=== PATIENT | male | born 1975 | race Caucasian/White ===

== ENCOUNTER → 2020-07-24 13:03 | Outpatient (BNVA) | payer OTHER, SELFPAY | PROVIDERS: Visit Provider Nurse Practitioner Psychiatric/Mental Health | DX: F11.20 Opioid dependence, uncomplicated (principal) | CPT/HCPCS: 80305; 99211 ==

== ENCOUNTER → 2020-07-31 13:05 | Outpatient (BNVA) | payer OTHER, SELFPAY | PROVIDERS: Visit Provider Internal Medicine | DX: Z51.81 Encounter for therapeutic drug level monitoring (principal); Z79.899 Other long term (current) drug therapy; Z79.891 Long term (current) use of opiate analgesic | CPT/HCPCS: 80305; 99211 ==

== ENCOUNTER → 2020-08-06 10:21 | Outpatient (BNVA) | payer OTHER, SELFPAY | PROVIDERS: Visit Provider Internal Medicine | DX: F11.99 Opioid use, unspecified with unspecified opioid-induced disorder (principal) | CPT/HCPCS: 80305; 99211 ==

== ENCOUNTER → 2020-09-02 13:08 | Outpatient (BNVA) | payer OTHER, SELFPAY | PROVIDERS: Visit Provider Internal Medicine | DX: F11.20 Opioid dependence, uncomplicated (principal); F17.200 Nicotine dependence, unspecified, uncomplicated; Z59.0 Homelessness | CPT/HCPCS: 80305; 99212 ==

== ENCOUNTER → 2020-09-10 14:36 | Outpatient (BNVA) | payer OTHER, SELFPAY | PROVIDERS: Visit Provider Internal Medicine | DX: Z76.89 Persons encountering health services in other specified circumstances (principal) ==

== ENCOUNTER → 2020-09-22 10:18 | Outpatient (BNVA) | payer OTHER, SELFPAY | PROVIDERS: Visit Provider Internal Medicine | DX: F11.99 Opioid use, unspecified with unspecified opioid-induced disorder (principal) | CPT/HCPCS: 80305; 99211 ==

== ENCOUNTER → 2020-09-30 13:28 | Outpatient (BNVA) | payer OTHER, SELFPAY | PROVIDERS: Visit Provider Internal Medicine | DX: Z76.89 Persons encountering health services in other specified circumstances (principal) ==

== ENCOUNTER → 2020-10-14 11:33 | Outpatient (BNVA) | payer OTHER, SELFPAY | PROVIDERS: Visit Provider Internal Medicine | DX: Z76.89 Persons encountering health services in other specified circumstances (principal) ==

== ENCOUNTER → 2020-10-28 10:01 | Outpatient (BNVA) | payer OTHER, SELFPAY | PROVIDERS: Visit Provider Internal Medicine | DX: Z76.89 Persons encountering health services in other specified circumstances (principal) ==

== ENCOUNTER → 2020-11-17 10:26 | Outpatient (BNVA) | payer OTHER, SELFPAY | PROVIDERS: Visit Provider Internal Medicine | DX: F11.99 Opioid use, unspecified with unspecified opioid-induced disorder (principal) | CPT/HCPCS: 80305 ==

== ENCOUNTER → 2020-11-24 10:32 | Outpatient (BNVA) | payer OTHER, SELFPAY | PROVIDERS: Visit Provider Internal Medicine | DX: F11.99 Opioid use, unspecified with unspecified opioid-induced disorder (principal); F14.10 Cocaine abuse, uncomplicated; F17.200 Nicotine dependence, unspecified, uncomplicated | CPT/HCPCS: 80305; 99212 ==

== ENCOUNTER → 2020-12-11 11:05 | Outpatient (BNVA) | payer OTHER, SELFPAY | PROVIDERS: Visit Provider Internal Medicine | DX: Z51.81 Encounter for therapeutic drug level monitoring (principal) | CPT/HCPCS: 80305; 99211 ==

== ENCOUNTER → 2020-12-30 12:57 | Outpatient (BNVA) | payer OTHER, SELFPAY | PROVIDERS: Visit Provider Internal Medicine | DX: Z51.81 Encounter for therapeutic drug level monitoring (principal) | CPT/HCPCS: 80305; 99211 ==

== ENCOUNTER → 2021-01-15 14:46 | Outpatient (BNVA) | payer OTHER, SELFPAY | PROVIDERS: Visit Provider Internal Medicine | DX: Z51.81 Encounter for therapeutic drug level monitoring (principal) | CPT/HCPCS: 80305; 99211 ==

== ENCOUNTER → 2021-02-04 13:00 | Outpatient (BNVA) | payer OTHER, SELFPAY | PROVIDERS: Visit Provider Internal Medicine | DX: Z51.81 Encounter for therapeutic drug level monitoring (principal) | CPT/HCPCS: 80305; 99212 ==

== ENCOUNTER → 2021-03-03 13:48 | Outpatient (BNVA) | payer OTHER, SELFPAY | PROVIDERS: Visit Provider Internal Medicine | DX: Z51.81 Encounter for therapeutic drug level monitoring (principal); Z79.899 Other long term (current) drug therapy | CPT/HCPCS: 99211 ==

== ENCOUNTER → 2021-06-04 11:29 | Outpatient (BNVA) | payer OTHER, SELFPAY | PROVIDERS: Visit Provider Nurse Practitioner Psychiatric/Mental Health | DX: F11.20 Opioid dependence, uncomplicated (principal); F14.10 Cocaine abuse, uncomplicated | CPT/HCPCS: 80305; 99212 ==

== ENCOUNTER → 2021-06-11 09:55 | Outpatient (BNVA) | payer OTHER, SELFPAY | PROVIDERS: Visit Provider Nurse Practitioner Psychiatric/Mental Health | DX: Z51.81 Encounter for therapeutic drug level monitoring (principal); F11.90 Opioid use, unspecified, uncomplicated; F14.10 Cocaine abuse, uncomplicated | CPT/HCPCS: 80305; 99212 ==

== ENCOUNTER → 2021-06-23 15:40 | Outpatient (BNVA) | payer OTHER, SELFPAY | PROVIDERS: PCP Internal Medicine; Visit Provider Internal Medicine | DX: Z51.81 Encounter for therapeutic drug level monitoring (principal); F11.90 Opioid use, unspecified, uncomplicated; F12.90 Cannabis use, unspecified, uncomplicated | CPT/HCPCS: 80305; 99212 ==

== ENCOUNTER → 2021-07-06 16:40 | Outpatient (BNVA) | payer OTHER, SELFPAY | PROVIDERS: Visit Provider Internal Medicine | DX: F11.90 Opioid use, unspecified, uncomplicated (principal) | CPT/HCPCS: 80305; 99212 ==

== ENCOUNTER 2021-07-20 16:23 | Outpatient (REF) | payer OTHER, SELFPAY ==
[2021-07-20 18:38] LABS: Fentanyl, urine POSITIVE (Not Detect)
== END 2021-07-20 16:24 | disposition home or self-care (01) ==
LOC: HO.LNP 16:23
PROVIDERS: Visit Provider Internal Medicine
DX: F11.20 Opioid dependence, uncomplicated (principal); Z79.899 Other long term (current) drug therapy
CPT/HCPCS: 80305; 80307; 99212

== ENCOUNTER → 2021-08-05 11:44 | Outpatient (BNVA) | payer OTHER, SELFPAY | PROVIDERS: Visit Provider Internal Medicine | DX: F11.20 Opioid dependence, uncomplicated (principal); Z51.81 Encounter for therapeutic drug level monitoring; Z79.899 Other long term (current) drug therapy | CPT/HCPCS: 80305; 99212 ==

== ENCOUNTER → 2021-08-19 10:41 | Outpatient (BNVA) | payer OTHER, SELFPAY | PROVIDERS: Visit Provider Internal Medicine | DX: F11.90 Opioid use, unspecified, uncomplicated (principal); Z79.899 Other long term (current) drug therapy | CPT/HCPCS: 80305; 99212 ==

== ENCOUNTER 2021-09-04 13:16 | Outpatient (REF) | payer OTHER, SELFPAY ==
[2021-09-04 17:53] LABS: Fentanyl, urine Not Detected (Not Detect)
== END 2021-09-04 13:17 | disposition home or self-care (01) ==
LOC: HO.LNP 13:16
PROVIDERS: Visit Provider Internal Medicine
DX: F11.99 Opioid use, unspecified with unspecified opioid-induced disorder (principal); Z79.899 Other long term (current) drug therapy
CPT/HCPCS: 80305; 80307; 99212

== ENCOUNTER 2021-09-23 13:18 | Outpatient (REF) | payer OTHER, SELFPAY ==
[2021-09-23 17:57] LABS: Fentanyl, urine Not Detected (Not Detect)
== END 2021-09-23 13:19 | disposition home or self-care (01) ==
LOC: HO.LNP 13:18
PROVIDERS: Visit Provider Internal Medicine
DX: F11.20 Opioid dependence, uncomplicated (principal); Z51.81 Encounter for therapeutic drug level monitoring; Z79.899 Other long term (current) drug therapy
CPT/HCPCS: 80305; 80307; 99212

== ENCOUNTER → 2021-10-07 14:22 | Outpatient (BNVA) | payer OTHER, SELFPAY | PROVIDERS: Visit Provider Internal Medicine | DX: Z51.81 Encounter for therapeutic drug level monitoring (principal); F11.20 Opioid dependence, uncomplicated | CPT/HCPCS: 80305; 99211 ==

== ENCOUNTER → 2021-10-21 13:33 | Outpatient (BNVA) | payer OTHER, SELFPAY | DX: Z51.81 Encounter for therapeutic drug level monitoring (principal); F11.20 Opioid dependence, uncomplicated | CPT/HCPCS: 80305; 99211 ==

== ENCOUNTER → 2021-11-04 09:40 | Outpatient (BNVA) | payer OTHER, SELFPAY | PROVIDERS: Visit Provider Internal Medicine | DX: Z51.81 Encounter for therapeutic drug level monitoring (principal); F11.20 Opioid dependence, uncomplicated | CPT/HCPCS: 80305; 99211 ==

== ENCOUNTER → 2021-11-17 10:48 | Outpatient (BNVA) | payer OTHER, SELFPAY | PROVIDERS: Visit Provider Internal Medicine | DX: Z51.81 Encounter for therapeutic drug level monitoring (principal); F11.20 Opioid dependence, uncomplicated | CPT/HCPCS: 80305; 99211 ==

== ENCOUNTER → 2021-12-01 11:16 | Outpatient (BNVA) | payer OTHER, SELFPAY | PROVIDERS: Visit Provider Internal Medicine | DX: Z51.81 Encounter for therapeutic drug level monitoring (principal); F11.20 Opioid dependence, uncomplicated | CPT/HCPCS: 80305; 99211 ==

== ENCOUNTER → 2021-12-14 10:58 | Outpatient (BNVA) | payer OTHER, SELFPAY | PROVIDERS: Visit Provider Internal Medicine | DX: Z51.81 Encounter for therapeutic drug level monitoring (principal); F11.20 Opioid dependence, uncomplicated; F12.90 Cannabis use, unspecified, uncomplicated; F14.90 Cocaine use, unspecified, uncomplicated | CPT/HCPCS: 80305 ==

== ENCOUNTER → 2022-01-12 14:38 | Outpatient (BNVA) | payer OTHER, SELFPAY | PROVIDERS: Visit Provider Internal Medicine | DX: Z51.81 Encounter for therapeutic drug level monitoring (principal); F11.20 Opioid dependence, uncomplicated | CPT/HCPCS: 80305; 99211 ==

== ENCOUNTER → 2022-02-09 14:00 | Outpatient (BNVA) | payer OTHER, SELFPAY | PROVIDERS: Visit Provider Internal Medicine | DX: Z51.81 Encounter for therapeutic drug level monitoring (principal); F11.20 Opioid dependence, uncomplicated | CPT/HCPCS: 80305; 99212 ==

== ENCOUNTER → 2022-03-09 12:57 | Outpatient (BNVA) | payer OTHER, SELFPAY | PROVIDERS: Visit Provider Internal Medicine | DX: F11.20 Opioid dependence, uncomplicated (principal) | CPT/HCPCS: 80305; 99212 ==

== ENCOUNTER → 2022-04-09 13:15 | Outpatient (BNVA) | payer OTHER, SELFPAY | PROVIDERS: Visit Provider Internal Medicine | DX: F11.20 Opioid dependence, uncomplicated (principal) | CPT/HCPCS: 80305; 99212 ==

== ENCOUNTER → 2022-05-07 13:14 | Outpatient (BNVA) | payer OTHER, SELFPAY | PROVIDERS: Visit Provider Internal Medicine | DX: Z51.81 Encounter for therapeutic drug level monitoring (principal); F11.20 Opioid dependence, uncomplicated | CPT/HCPCS: 80305; 99212 ==

== ENCOUNTER → 2022-06-04 13:06 | Outpatient (BNVA) | payer OTHER, SELFPAY | PROVIDERS: Visit Provider Internal Medicine | DX: F11.99 Opioid use, unspecified with unspecified opioid-induced disorder (principal); F14.90 Cocaine use, unspecified, uncomplicated; Z51.81 Encounter for therapeutic drug level monitoring | CPT/HCPCS: 99212 ==

== ENCOUNTER → 2022-07-02 12:59 | Outpatient (BNVA) | payer OTHER, SELFPAY | PROVIDERS: Visit Provider Internal Medicine | DX: Z51.81 Encounter for therapeutic drug level monitoring (principal); F11.20 Opioid dependence, uncomplicated; F12.90 Cannabis use, unspecified, uncomplicated; F14.90 Cocaine use, unspecified, uncomplicated | CPT/HCPCS: 99212 ==

== ENCOUNTER → 2022-07-30 14:24 | Outpatient (BNVA) | payer OTHER, SELFPAY | PROVIDERS: Visit Provider Internal Medicine | DX: F11.20 Opioid dependence, uncomplicated (principal); Z51.81 Encounter for therapeutic drug level monitoring; Z79.899 Other long term (current) drug therapy | CPT/HCPCS: 99212 ==

== ENCOUNTER 2022-07-31 06:31 | Emergency (ER) | payer OTHER, SELFPAY ==
[2022-07-31 06:35] VITALS: BP 140/70; PULSE 110; O2SAT 100
[2022-07-31 06:38] VITALS: BP 159/94; PULSE 106; RESP 18; TEMP 36.6; O2SAT 100; BMI 19.0
--- NOTE | 2022-07-31 06:46 | PC.NURSE ---
Pt tearful at time of triage. States he made a horrible mistake by using heroin today. Pt is on suboxone but his clinic was closed today and he could not receive his prescription. Therefore he used heroin instead. Denies any regular use.
[2022-07-31 06:52] VITALS: BP 159/94; PULSE 94; RESP 15; TEMP 36.7; O2SAT 100
--- NOTE | 2022-07-31 07:12 | ED_ITS ---
HPI - Overdose General Chief Complaint: Overdose Stated Complaint: overdose Time Seen by Provider: 07/31/22 06:50 Source: patient and EMS Mode of arrival: EMS Limitations: no limitations History of Present Illness HPI Narrative: 47-year-old male came in by ambulance for after non intentional heroin overdose. patient was seen by his significant other passed out after using half a bag of heroin girlfriend called EMS on arrival patient was given 4 mg of nasal Narcan, patient has not use heroin for 10 years and he is on Suboxone 8 mg last 1 was a day ago. Declined SI or HI. Patient now regret Ng using heroin. Related Data Home Medications Medication Instructions Recorded Confirmed clonazepam 0.5 mg tablet 0.5 mg PO BEDTIME 06/04/21 Previous Rx's Medication Instructions Recorded naloxone 4 mg/actuation nasal 4 mg intranasal Q2M PRN opioid 06/04/21 spray (Narcan) overdose #2 ea nicotine 21 mg/24 hr daily 1 patch transdermal DAILY 30 days 08/19/21 transdermal patch (Nicoderm CQ) #30 ea buprenorphine 8 mg-naloxone 2 mg 2 film sublingual DAILY 30 days 07/02/22 sublingual film (Suboxone) #60 ea Allergies Allergy/AdvReac Type Severity Reaction Status Date / Time No Known Allergies Allergy Verified 07/30/22 14:24 [No Known Allergies*] Review of Systems Review of Systems: all other systems are reviewed and are negative Constitutional: Reports as per HPI and Reports no additional constitutional complaints Eyes: Reports as per HPI and Reports no additional eye complaints Reports system reviewed and no additional complaints, except as documented Cardiovascular: Reports as per HPI and Reports no additional cardiovascular complaints Respiratory: Reports as per HPI and Reports no additional respiratory complaints Gastrointestinal: Reports as per HPI and Reports no additional gastrointestinal complaints Genitourinary: Reports no additional female genitourinary complaints Musculoskeletal: Reports no additional musculoskeletal complaints Skin/Breast: Reports system reviewed and no additional complaints, except as docu Psychiatric: Reports no additional psychiatric complaints Endocrine: Reports no additional endocrine complaints Hematologic/Lymphatic: Reports no additional hematologic/lymphatic complaints Allergic/Immunologic: Reports no additional allergic/immunologic complaints Reports system reviewed and no additional complaints, except as documented and Reports Abnormal speech present PMFSH Past Medical History Medical History Cocaine use disorder Opioid use disorder Tobacco use disorder Social History Social History Household Members: Significant Other Household Members Other:: Fiance Alcohol intake: current Alcohol intake frequency: does not drink Patient Tobacco Use Status: Current everyday Tobacco user Tobacco use type: Cigarette Cigarette Packs Per Day: 0.5 Years Smoked: 20 Smoked in Last 30 Days: Yes Use of substances other than those prescribed or required for medical reasons: Yes Substance Use Type: Heroin and Other Substance Use Frequency: Recent Binge Last Used Substance: Just Prior to Admission Any prior treatment program specific to substance use: Yes Physical Exam Vital Signs: Vital Signs: Last Vital Signs Temp 98.6 F 07/31/22 08:08 Pulse 88 07/31/22 08:08 Resp 11 L 07/31/22 08:08 BP 124/67 07/31/22 08:08 Pulse Ox 98 07/31/22 08:08 O2 Del Method 07/31/22 08:08 BMI result Body Mass Index 19.0 vital signs have been reviewed as appeared to be correct. Blood pressure normal. Heart rate normal. Respiration rate normal. Temperature normal. Oxygen saturation normal. Appearance: Alert. Oriented X3. No acute distress. Head: Normal external exam. Normocephalic. Atraumatic. No Yepez signs noted. No raccoon eyes noted Eyes: PERRLA. EOMI. Conjunctiva and sclera normal. Eyelids normal. ENT: TM's Normal. Pharynx normal. Uvula midline. Moist mucous membranes. No trismus noted. No drooling noted. No muffled voice noted. Neck: Normal inspection. Neck supple. FROM. No adenopathy. Thyroid Normal. No meningeal signs. No neck mass noted. CVS: Normal heart rate and rhythm. Heart sound normal. No murmurs noted. Pulses normal throughout. Respiratory: No respiratory distress. Painless inspiration. Breath sounds normal. No wheezes/rales/rhonchi noted. Chest nontender. No accessory muscle usage noted or decreased air movement noted. Abdomen: Soft and nontender. Bowel sounds normal in all 4 quadrants. No distention noted. No organomegaly noted. No visible injury noted. Back: No CVA tenderness. Full range of motion noted. Skin: Skin warm and dry. Normal skin color. Normal skin turgor. No rashes/lesions/lacerations noted. Extremities: No lower extremity edema. Extremities exhibit normal range of motion. Extremities nontender. Neuro: Oriented X 3. Cranial nerve exam: II-XII are grossly intact No motor deficit. No sensory deficit. Reflexes normal. Patient Orientation: Person, Place, Time and Situation, okay hygiene and gr ooming. Fair eye contact, attentive, no tics or tremors. Level of Consciousness: Awake, Appropriate and Alert Patient Behavior: Appropriate, Guarded, Cooperative and Anxious Mood Description: Constricted, Blunted and Apprehensive Affect Description: Constricted, Blunted and Apprehensive Patient Cognition Impaired: No Ability to Follow Directions: Excellent Speech Pattern: Clear, Appropriate and Spontaneous Speech, nonpressured, spontaneous with regular rate and rhythm, normal volume and prosody. No dysarthria. Memory Description: Intact, Immediate Intact and Short Term Intact Hallucinations: None Delusions: Not Present Thought Process: Intact Thought Content: positive for Intact, positive for Logical, denies Suicidal Ideation and denies Homicidal Ideation. Depressive Symptoms: Not present. Judgement and Insight: Limited but adequate. Course Course Course Narrative: 47-year-old male unintentional heroin overdose, patient now is awake, alert, oriented x3. No SI, no HI, patient regret using heroin after not using it for 10 years, patient will follow-up with the Suboxone Clinic. Patient was offered Suboxone but he is afraid of reaction with heroin he used yesterday and patient declined Suboxone but he will follow-up with the Suboxone Clinic. No sign of withdrawal at this point. Discharge Plan Discharge Clinical Impression: Drug overdose Patient Disposition: Home, Self-Care Instructions: Adult Overdose (ED) Prescriptions: No Action clonazepam 0.5 mg tablet 0.5 mg PO BEDTIME Rx Instructions: administer 30 minutes before bedtime Narcan 4 mg/actuation spray,non-aerosol 4 mg intranasal Q2M PRN (Reason: opioid overdose) Qty: 2 0RF Rx Instructions: spray 1 dose into ONE nostril; alternate nostrils w each dose until help arrives nicotine [Nicoderm CQ] 21 mg/24 hr patch 24 hour 1 patch transdermal DAILY 30 Days Qty: 30 3RF buprenorphine-naloxone [Suboxone] 8-2 mg film 2 film sublingual DAILY 30 Days Qty: 60 0RF Rx Instructions: place 1 strip/tab under (each) side of tongue
[2022-07-31 08:08] VITALS: BP 124/67; PULSE 88; RESP 11; TEMP 37; O2SAT 98
--- OUTSIDE RECORDS SUMMARY | 2022-07-31 08:49 | XMS_ITS | Continuity of Care Document ---
:1975 Author Organization [facility] Address [address] [place] [address]- Care Team Providers Name Role Phone Mio Taylor MD Primary Care Physician Encounter [facility] Date(s): 09/29/19 - 09/29/[address] [address]- [facility] Discharge Disposition: A-D/C AMA Attending Physician: Chuck Vera MD Admitting Physician: Chuck Vera MD Referring Physician: Not on Staff, Referring MD Allergies, Adverse Reactions, Alerts Substance Reaction Severity Status NKA Active Medications nabumetone 500 mg oral tablet See Instructions, 1-2 tablet By Mouth twice daily as needed for pain. with food, # 30 tablet, 0 Refills, Maintenance, 1-2 tablet By Mouth twice daily as needed for pain. with food Start Date: 10/01/13 Status: Ordered Vital Signs Most recent to oldest [Reference Range]: 1 Height 170 cm (09/29/19 6:32 PM) Weight 60 kg (09/29/19 6:32 PM) Oxygen Saturation [94-100 %] 98 % (09/29/19 6:32 PM) Pulse Rate [55-90 bpm] 115 bpm *H* (09/29/19 6:32 PM) Blood Pressure [90-138/55-84 mm Hg] 126/97 mm Hg (09/29/19 6:32 PM) Respiratory Rate [16-30 br/min] 20 br/min (09/29/19 6:32 PM) Temperature [96.8-100.4 DegF] 97.4 DegF (09/29/19 6:32 PM) Mode of Delivery (Oxygen) Room air (09/29/19 6:32 PM) Temperature Route Oral (09/29/19 6:32 PM) Dry Weight 60 kg (09/29/19 6:32 PM)
--- NOTE | 2022-07-31 09:03 | MHC.RECOVSUP ---
SUDE Patient is a 47 year old Dutch speaking male who presented to [facility] ED on 07/31 after an accidental overdose. Patient saw his Suboxone provider on 07/30 however reports his prescription was not sent to the pharmacy and he did not realize until after the clinic closed. Patient reports he last took 8mg of Suboxone on at 1500 and that he began to feel sick this morning so he decided to use heroin. Patient reports he used 1/3 of a bag and was found unresponsive. Patient expressed remorse and reports he is terrified of using again. Patient reports he had not used in 10 years prior to this however a review of the medical record indicates this law writer met with patient in 2019 after an accidental overdose. A review of [facility] notes indicates patient has been supported by a assistant baseball coach and therapist in the past. Discussed with Marily SANTOS who recommended providing patient with 1 or 2mg of Suboxone in the ED and for patient to receive a prescription to get back to his full dose tomorrow. Discussed plan with patient. Patient reports that he is terrified of precipitated withdrawal. He has never experienced precipitated withdrawal but has heard about it. This law writer reassured patient that he still has buprenorphine in his system and that a low dose of Suboxone is unlikely to result in precipitated withdrawal. Patient continues to decline medication and prescription. Patient reports he would rather wait until Tuesday and restart Suboxone when he is sure there is no opiates in him. Encouraged patient to return to the ED if the withdrawal becomes unmanageable. Patient acknowledged. Discussed case with ED physician.
== END 2022-07-31 09:51 | disposition home or self-care (01) ==
PROVIDERS: Emergency Provider Emergency Medicine; PCP Internal Medicine
DX: T40.1X1A Poisoning by heroin, accidental (unintentional), initial encounter (principal); F11.20 Opioid dependence, uncomplicated; F14.10 Cocaine abuse, uncomplicated; R40.20 Unspecified coma; Y92.019 Unspecified place in single-family (private) house as the place of occurrence of the external cause; F17.210 Nicotine dependence, cigarettes, uncomplicated
CPT/HCPCS: 99284

== ENCOUNTER → 2022-08-25 11:40 | Outpatient (BNVA) | payer OTHER, SELFPAY | PROVIDERS: Visit Provider Internal Medicine | DX: F14.20 Cocaine dependence, uncomplicated (principal); F11.20 Opioid dependence, uncomplicated; F17.210 Nicotine dependence, cigarettes, uncomplicated; Z51.81 Encounter for therapeutic drug level monitoring | CPT/HCPCS: 99212 ==

== ENCOUNTER 2022-10-05 00:55 | Emergency (ER) | payer OTHER, SELFPAY ==
[2022-10-05 00:55] VITALS: BMI 24.3
[2022-10-05 01:27] VITALS: BP 131/71; PULSE 93; RESP 18; TEMP 36.7; O2SAT 96
[2022-10-05 02:19] VITALS: BP 138/82; PULSE 70; RESP 18; TEMP 36.6; O2SAT 94
--- NOTE | 2022-10-05 02:22 | ED_ITS ---
HPI - Overdose General Chief Complaint: Overdose Stated Complaint: od Time Seen by Provider: 10/05/22 01:58 Source: patient and EMS Mode of arrival: EMS History of Present Illness HPI Narrative: 47-year-old male presents via EMS after his girlfriend called for suspected overdose because she can wake him up. Police arrived on scene return patient over and found that patient was awake and alert and spontaneously breathing. They did not administer Narcan at that time. Patient states that he is feeling fine and is requesting discharge. Patient is currently declining any further evaluation including for blood sugar. Related Data Home Medications Medication Instructions Recorded Confirmed clonazepam 0.5 mg tablet 0.5 mg PO BEDTIME 06/04/21 Previous Rx's Medication Instructions Recorded naloxone 4 mg/actuation nasal 4 mg intranasal Q2M PRN opioid 06/04/21 spray (Narcan) overdose #2 ea nicotine 21 mg/24 hr daily 1 patch transdermal DAILY 30 days 08/19/21 transdermal patch (Nicoderm CQ) #30 ea buprenorphine 8 mg-naloxone 2 mg 2 film sublingual DAILY 30 days 09/03/22 sublingual film (Suboxone) #60 ea Allergies Allergy/AdvReac Type Severity Reaction Status Date / Time No Known Allergies Allergy Verified 08/25/22 11:53 [No Known Allergies*] Review of Systems Review of Systems: Pertinent positives and negatives as stated in HPI 10 point review of systems is otherwise negative. [facility] Past Medical History Source: nursing notes reviewed Medical History Cocaine use disorder Opioid use disorder Tobacco use disorder Social History Social History Household Members: Significant Other Household Members Other:: Fiance Alcohol intake: current Alcohol intake frequency: does not drink Patient Tobacco Use Status: Current everyday Tobacco user Tobacco use type: Cigarette Cigarette Packs Per Day: 0.5 Years Smoked: 20 Substance Use Type: Heroin and Other Advance Directives: No Physical Exam Vital Signs: Vital Signs: Last Vital Signs Temp 98 F 10/05/22 02:19 Pulse 70 10/05/22 02:19 Resp 18 10/05/22 02:19 BP 138/82 10/05/22 02:19 Pulse Ox 94 10/05/22 02:19 O2 Del Method 10/05/22 02:19 BMI result Body Mass Index 24.3 VITAL SIGNS: Reviewed. GENERAL: Well nourished, in no acute distress. HEAD: Normocephalic/atraumatic EYES: PERRLA, EOMI EARS: Ext canals without abnormality OROPHARYNX: no oral lesions noted, posterior pharynx clear LUNGS: Normal breath sounds. No adventitious sounds or accessory muscle use. SpO2<94> CARDIOVASCULAR: Regular rate and rhythm without noted murmurs ABDOMEN: Soft, non-tender, non-distended with bowel sounds. MUSCULOSKELETAL: No tenderness, deformities, or effusions noted on gross inspection. EXTREMITIES: No cyanosis, clubbing or edema. SKIN: Inspection of the skin reveals no rashes NEUROLOGIC: Sleeping, difficult to arouse and oriented x 3. Strength and sensation to light touch were grossly intact x 4. Course Course Course Narrative: 47-year-old male with history and clinical presentation consistent with accidental overdose and although he was awake on arrival, he was exceedingly difficult to arouse and was noted to have pinpoint pupils, he will receive 4 mg Narcan intranasally and be re-evaluated. Patient awake prior to administration of Narcan and adamantly refusing. He is otherwise hemodynamically stable is declining any detox resources. He denies any suicidal ideation is otherwise discharged home in stable condition to the care of his . Patient discharged with home Narcan. Medications Administered Discontinued Medications Generic Name Dose Route Start Last Admin Trade Name Freq PRN Reason Stop Dose Admin Naloxone HCl 4 mg 10/05/22 03:10 10/05/22 03:32 Naloxone Hcl Nasal 4 Mg [place] NOSTRILALT 10/05/22 03:11 Not Given ONCE ONE Discharge Plan Discharge Clinical Impression: Drug overdose, Polysubstance use disorder Patient Disposition: Home, Self-Care Instructions: Polysubstance Abuse (ED), Adult Overdose (ED) Additional Instructions: Return to the ER for any worsening symptoms. Prescriptions: No Action buprenorphine-naloxone [Suboxone] 8-2 mg film 2 film sublingual DAILY 30 Days Qty: 60 0RF Rx Instructions: place 1 strip/tab under (each) side of tongue clonazepam 0.5 mg tablet 0.5 mg PO BEDTIME Rx Instructions: administer 30 minutes before bedtime Narcan 4 mg/actuation spray,non-aerosol 4 mg intranasal Q2M PRN (Reason: opioid overdose) Qty: 2 0RF Rx Instructions: spray 1 dose into ONE nostril; alternate nostrils w each dose until help arrives nicotine [Nicoderm CQ] 21 mg/24 hr patch 24 hour 1 patch transdermal DAILY 30 Days Qty: 30 3RF
--- NOTE | 2022-10-05 03:37 | PC.NURSE ---
patient is alert and oriented x4. he is calling his relative on the phone to come pick him up.
== END 2022-10-05 04:20 | disposition home or self-care (01) ==
PROVIDERS: Emergency Provider Student in an Organized Health Care Education/Training Program
DX: R40.0 Somnolence (principal); T50.901A Poisoning by unspecified drugs, medicaments and biological substances, accidental (unintentional), initial encounter; F19.99 Other psychoactive substance use, unspecified with unspecified psychoactive substance-induced disorder; F11.99 Opioid use, unspecified with unspecified opioid-induced disorder; F14.10 Cocaine abuse, uncomplicated; Y92.013 Bedroom of single-family (private) house as the place of occurrence of the external cause; F17.200 Nicotine dependence, unspecified, uncomplicated; Z79.899 Other long term (current) drug therapy
CPT/HCPCS: 99283

== ENCOUNTER → 2022-10-08 13:38 | Outpatient (BNVA) | payer OTHER, SELFPAY | PROVIDERS: Visit Provider Internal Medicine | DX: Z51.81 Encounter for therapeutic drug level monitoring (principal); F11.20 Opioid dependence, uncomplicated | CPT/HCPCS: 99212 ==

== ENCOUNTER → 2022-10-14 10:05 | Outpatient (BNVA) | payer OTHER, SELFPAY | PROVIDERS: PCP Internal Medicine; Visit Provider Nurse Practitioner Psychiatric/Mental Health | DX: Z51.81 Encounter for therapeutic drug level monitoring (principal); F11.20 Opioid dependence, uncomplicated | CPT/HCPCS: 80305; 99212 ==

== ENCOUNTER → 2022-10-21 09:12 | Outpatient (BNVA) | payer OTHER, SELFPAY | PROVIDERS: PCP Internal Medicine; Visit Provider Nurse Practitioner Psychiatric/Mental Health | DX: F11.20 Opioid dependence, uncomplicated (principal) | CPT/HCPCS: 99212 ==

== ENCOUNTER → 2022-10-28 09:11 | Outpatient (BNVA) | payer OTHER, SELFPAY | PROVIDERS: PCP Internal Medicine; Visit Provider Nurse Practitioner Psychiatric/Mental Health | DX: Z51.81 Encounter for therapeutic drug level monitoring (principal); F11.20 Opioid dependence, uncomplicated | CPT/HCPCS: 80305; 99212 ==

== ENCOUNTER → 2022-11-04 09:24 | Outpatient (BNVA) | payer OTHER, SELFPAY | PROVIDERS: PCP Internal Medicine; Visit Provider Nurse Practitioner Psychiatric/Mental Health | DX: Z51.81 Encounter for therapeutic drug level monitoring (principal); F11.20 Opioid dependence, uncomplicated | CPT/HCPCS: 99212 ==

== ENCOUNTER → 2022-11-11 09:45 | Outpatient (BNVA) | payer OTHER, SELFPAY | PROVIDERS: PCP Internal Medicine; Visit Provider Nurse Practitioner Psychiatric/Mental Health | DX: F11.20 Opioid dependence, uncomplicated (principal); F14.10 Cocaine abuse, uncomplicated | CPT/HCPCS: 99212 ==

== ENCOUNTER → 2022-11-18 09:40 | Outpatient (BNVA) | payer OTHER, SELFPAY | PROVIDERS: PCP Internal Medicine; Visit Provider Nurse Practitioner Psychiatric/Mental Health | DX: Z51.81 Encounter for therapeutic drug level monitoring (principal); F11.29 Opioid dependence with unspecified opioid-induced disorder; F14.10 Cocaine abuse, uncomplicated | CPT/HCPCS: 99212 ==

== ENCOUNTER → 2022-11-25 11:25 | Outpatient (BNVA) | payer OTHER, SELFPAY | PROVIDERS: PCP Internal Medicine; Visit Provider Nurse Practitioner Psychiatric/Mental Health | DX: Z51.81 Encounter for therapeutic drug level monitoring (principal); F11.20 Opioid dependence, uncomplicated; F14.10 Cocaine abuse, uncomplicated | CPT/HCPCS: 80305; 99212 ==

== ENCOUNTER → 2022-12-09 09:35 | Outpatient (BNVA) | payer OTHER, SELFPAY | PROVIDERS: PCP Internal Medicine; Visit Provider Nurse Practitioner Psychiatric/Mental Health | DX: F11.20 Opioid dependence, uncomplicated (principal); F14.10 Cocaine abuse, uncomplicated | CPT/HCPCS: 99212 ==

== ENCOUNTER 2022-12-22 11:45 | Outpatient (RCR) | payer OTHER, SELFPAY ==
[2022-11-29 13:08] VITALS: BP 115/66; PULSE 83; TEMP 37
[2022-11-29 13:10] VITALS: BMI 19.8
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
--- NOTE | 2022-11-29 13:57 | PC.ADMIT ---
Patient is a 47 year old male who was referred to [facility] by the [facility] where he receives medication assisted treatment with Suboxone. According to Integrative Assessment patient has been in recovery for ten years and had two accidental overdoses on 07/31/22 and 10/05/22. Patient is also struggling with depression, anxiety, anhedonia, helplessness, poor sleep, decreased energy and motivation. Patient denied SI or thoughts to harm himself. Patient is alert and oriented x4. Calm and cooperative. Presented with depressed mood and affect. Patient holds a dx of Bipolar disorder current episode depressed. Medications reconciled with patient and medical record. Patient reports taking medications as prescribed.
--- NOTE | 2022-11-30 09:22 | PC.NURSE ---
Tj did not show up to the program. I called Tj and he stated he is going to court this morning and will be in the program tomorrow.
--- NOTE | 2022-12-03 07:58 | HO.PHP ---
The clients case was discussed and opened in treatment team
[2022-12-03 15:59] LABS: Amphetamine Screen Urine Not Detected (Not Detect); Barbiturates, Urine Not Detected (Not Detect); Benzodiazepines Screen Urine Not Detected (Not Detect); Cannabinoid Screen Urine POSITIVE (Not Detect); Cocaine Screen Urine POSITIVE (Not Detect); Fentanyl, urine POSITIVE (Not Detect); Opiate Screen Urine Not Detected (Not Detect); Phencyclidine Screen Urine Not Detected (Not Detect)
--- NOTE | 2022-12-07 09:50 | HO.PHP ---
I called Vic this morning to inquire about his absence. He states that he received a call from his registered nurse cardiac stating that he had to go to court today.
--- NOTE | 2022-12-08 09:46 | HO.PHPPROGNO ---
Subjective Subjective Date of Service: 12/08/22 Reason For Visit: BIPOLAR, RUBEN Medical Problems Affecting Mental Status: No Interim History: Describes mood as pretty good, but some anxiety . Finding PHP helpful. No mood lability, feels more stable. Has used cocaine recently, struggling with cravings. Otherwise no substance use. Dealing better with needing to go to penitentiary for 3 months, starting next month. No SI, no safety concerns. Medication Compliance: Yes Side effects from medications: No Attending Groups: Yes Review of Systems Acute medical concerns: No Medical Review of Systems: unchanged Review of Systems Review of Systems Yes all other systems are reviewed and are negative Constitutional: Reports no additional constitutional complaints Mental Status Exam Mental Status Exam Narrative: NAD. No SI. Patient Appearance: Appropriate Patient Orientation: Person, Place, Time and Situation Level of Consciousness: Appropriate Patient Behavior: Appropriate, Anxious and Good Eye Contact Mood Description: Anxious Affect Description: Anxious Patient Cognition Impaired: No Ability to Follow Directions: Good Speech Pattern: Clear, Spontaneous Speech and Soft-Spoken Memory Description: Intact Hallucinations: None Delusions: Not Present Thought Process: Intact Thought Content: positive for Intact Depressive Symptoms: Increased Anxiety, Difficulty Sleeping, Loss of Int. in Activity, Feelings of Worthlessness, Feelings of Guilt, Low Self Esteem and Difficulty Concentrating Judgement: Fair Diagnostics Vital Signs (24Hr): BMI result Body Mass Index 19.8 Assessment & Plan Assessment & Plan (1) Bipolar 1 disorder, depressed, moderate: Status: Acute Code(s): F31.32 - Bipolar disorder, current episode depressed, moderate Assessment and Plan: Anxious mood/affect. Reports going to penitentiary for 3 months, due to some actions when he was in a manic episode . no affect lability or constriction noted during encounter. Says however that he gets tearful easily, feels as if he is not completely stable. Taking medications as prescribed. Would like to trial medication increase, in order to help manage mood further. Discussed increase of aripiprazole, from 5mg daily to 7mg daily. He was in agreement with this. Continues with lamotrigine titration, now taking 50mg daily. (2) Opioid use disorder: Status: Acute Code(s): F11.99 - Opioid use, unspecified with unspecified opioid-induced disorder Assessment and Plan: No opioid use, doing well with suboxone. (3) Cocaine use disorder: Status: Acute Code(s): F14.10 - Cocaine abuse, uncomplicated Assessment and Plan: Struggling with cocaine cravings and use. Reports that he used to be prescribed acamprosate for cocaine use, with good effect. Discussed literature that is most current, which shows that it has not been proven to be statistically significant for cocaine use. However, he states it has helped in past. Requesting it. Discussed the medication benefits, risks of side effects, indications of use. Plan 1. Continue with current [facility] plan of care. 2. Start acamprosate 666mg tid. 3. Continue with other medications as currently prescribed. 4. Follow-up as per protocol. Patient educated on: diagnosis, medication risk/benefits, substance abuse and therapeutic strategies Informed Consent: understands Reason for contiued partial hosp. stay Substantial Risk for: inability to function, rapid decompensation and med/psych decompensation Certification I certify that partial hospital treatment is medically necessary due to the symptoms and problems resulting from the patient's mental illness and the failure to treat the patient at the partial hospital level of care would likely result in the patient requiring inpatient psychiatric care which could not be prevented at a less intensive level of care. Total time managing care of this patient today __20__ minutes. Discharge Plan Discharge Attending provider: Jhony Blake Medications: New aripiprazole [Abilify] 5 mg tablet 5 mg PO DAILY Qty: 14 0RF lamotrigine 25 mg tablet See Rx Instructions .ROUTE .COMPLEX 14 Days Qty: 14 0RF Rx Instructions: Take 1 tab (25mg daily) for 14 days, THEN take 2 tabs (50mg daily) for 14 days acamprosate 333 mg tablet,delayed release (DR/EC) 666 mg PO TID Qty: 90 0RF aripiprazole 2 mg tablet 2 mg PO DAILY Qty: 14 0RF lamotrigine 25 mg tablet 50 mg PO DAILY 14 Days Qty: 28 0RF Rx Instructions: After completion of lamotrigine 25mg daily, START lamotrigine 50mg daily for 14 days. No Action Narcan 4 mg/actuation spray,non-aerosol 4 mg intranasal Q2M PRN (Reason: opioid overdose) Qty: 2 0RF Rx Instructions: spray 1 dose into ONE nostril; alternate nostrils w each dose until help arrives (DME) Reset-O Digital Pascual (OUD) Misc See Rx Instructions .MEDSUPPLY Qty: 1 0RF Rx Instructions: As directed (3-4 times a week) 84 days buprenorphine-naloxone [Suboxone] 8-2 mg film 1 film sublingual BID Qty: 28 0RF Stand Alone Forms: Patient Portal Discharge page Patient Education: Lamotrigine (By mouth), Aripiprazole (By mouth)
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
[2022-12-08 19:04] LABS: Amphetamine Screen Urine Not Detected (Not Detect); Barbiturates, Urine Not Detected (Not Detect); Benzodiazepines Screen Urine Not Detected (Not Detect); Cannabinoid Screen Urine POSITIVE (Not Detect); Cocaine Screen Urine POSITIVE (Not Detect); Fentanyl, urine POSITIVE (Not Detect); Opiate Screen Urine Not Detected (Not Detect); Phencyclidine Screen Urine Not Detected (Not Detect)
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
--- NOTE | 2022-12-10 09:22 | PC.NURSE ---
Patient called and left a voicemail message stating he would not be able to come to the program today as he is unable to get a ride. Plans to be here on Tuesday. PHP team is aware.
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
--- NOTE | 2022-12-21 15:13 | HO.PHP ---
During community meeting Vic walked in and stated he could not stay for the day because he was on his way to take his daughter to the doctor.
--- NOTE | 2022-12-28 09:22 | PC.NURSE ---
Siomara spoke to Tj on December 23 as he called out as he had an appointment with the [facility]. Patient did not show up December 24 . Siomara spoke to his emergency contact Kiya who stated that Tj is home helping her get her house ready for an inspection and he is upset regarding having to turn himself in to longterm however stated he was safe and she was helping him with that process. Sujata called patient to discharge him from the program d/t non attendance.
== END 2022-12-22 23:59 | disposition home or self-care (01) ==
LOC: HO.PHPA 11:45
PROVIDERS: Nurse Practitioner Psychiatric/Mental Health; Visit Provider Psychiatry & Neurology Psychiatry
DX: F31.32 Bipolar disorder, current episode depressed, moderate (principal); F11.20 Opioid dependence, uncomplicated; F14.10 Cocaine abuse, uncomplicated; Z79.899 Other long term (current) drug therapy
CPT/HCPCS: 80307; 90791; 90853

== ENCOUNTER → 2022-12-23 09:06 | Outpatient (BNVA) | payer OTHER, SELFPAY | PROVIDERS: PCP Internal Medicine; Visit Provider Nurse Practitioner Psychiatric/Mental Health | DX: F11.20 Opioid dependence, uncomplicated (principal); F14.10 Cocaine abuse, uncomplicated | CPT/HCPCS: 80305; 99212 ==

== ENCOUNTER → 2023-01-28 13:30 | Outpatient (BNVA) | payer OTHER, SELFPAY | PROVIDERS: PCP Internal Medicine; Visit Provider Nurse Practitioner Psychiatric/Mental Health | DX: F11.20 Opioid dependence, uncomplicated (principal); F14.20 Cocaine dependence, uncomplicated; F17.210 Nicotine dependence, cigarettes, uncomplicated; Z51.81 Encounter for therapeutic drug level monitoring; Z79.899 Other long term (current) drug therapy | CPT/HCPCS: 80305; 99212 ==

== ENCOUNTER → 2023-02-09 10:11 | Outpatient (BNVA) | payer OTHER, SELFPAY | PROVIDERS: PCP Internal Medicine; Visit Provider Nurse Practitioner Psychiatric/Mental Health | DX: Z51.81 Encounter for therapeutic drug level monitoring (principal); F11.20 Opioid dependence, uncomplicated | CPT/HCPCS: 80305; 99212 ==

== ENCOUNTER → 2023-02-24 09:39 | Outpatient (BNVA) | payer OTHER, SELFPAY | PROVIDERS: PCP Internal Medicine; Visit Provider Nurse Practitioner Psychiatric/Mental Health | DX: Z51.81 Encounter for therapeutic drug level monitoring (principal); F11.20 Opioid dependence, uncomplicated | CPT/HCPCS: 99212 ==

== ENCOUNTER → 2023-03-17 09:17 | Outpatient (BNVA) | payer OTHER, SELFPAY | PROVIDERS: PCP Internal Medicine; Visit Provider Nurse Practitioner Psychiatric/Mental Health | DX: F11.20 Opioid dependence, uncomplicated (principal) | CPT/HCPCS: 80305; 99212 ==

== ENCOUNTER → 2023-04-07 13:38 | Outpatient (BNVA) | payer OTHER, SELFPAY | PROVIDERS: PCP Internal Medicine; Visit Provider Nurse Practitioner Psychiatric/Mental Health | DX: F11.20 Opioid dependence, uncomplicated (principal) | CPT/HCPCS: 80305; 99212 ==

== ENCOUNTER 2023-04-29 09:27 | Outpatient (AMB) | payer MEDICAID, SELFPAY ==
[2023-04-29 09:46] VITALS: BP 122/80; PULSE 84; O2SAT 96
--- NOTE | 2023-04-29 09:46 | MHC.OFFVIS ---
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 Awaiting court date PCP appt upcoming [facility] Medical History Cocaine use disorder History of arm fracture Menieres disease Opioid use disorder Tobacco use disorder Social History Household Members: None Household Members Other:: Fiance Alcohol intake: current Alcohol intake frequency: does not drink Patient Tobacco Use Status: Current everyday Tobacco user Tobacco use type: Cigarette Cigarette Packs Per Day: 0.5 Cigarettes Per Day: 10 Years Smoked: 20 Substance Use Type: Heroin and Other Review of Systems Const Reports as per HPI Physical Exam Vital Signs: Last Vital Signs Pulse 84 04/29/23 09:46 BP 122/80 04/29/23 09:46 Pulse Ox 96 04/29/23 09:46 Oxygen Delivery Method Room Air 04/29/23 09:46 Const General: cooperative and no acute distress Psych Appearance: grossly normal Affect: normal affect Attitude: cooperative Thought process: Normal thought process present Thought content: Normal thought content present Insight: Fair insight present (Psych) Assessment & Plan Assessment & Plan (1) Opioid use disorder: Code(s): F11.99 - Opioid use, unspecified with unspecified opioid-induced disorder Plan: risk reduction reviewed continue suboxone at current dose follow up 4 weeks Medications: Refilled buprenorphine-naloxone 8-2 mg (Suboxone) 1 film sublingual BID 60 ea 0RF Coding Level of Care Code Est Pt Level 3 (47238) Diagnoses Opioid use disorder F11.99
== END 2023-04-29 10:12 | disposition home or self-care (01) ==
LOC: HO.HCC 09:27
PROVIDERS: PCP Internal Medicine; Visit Provider Nurse Practitioner Psychiatric/Mental Health
DX: F11.99 Opioid use, unspecified with unspecified opioid-induced disorder (principal)
CPT/HCPCS: 99213

== ENCOUNTER → 2023-04-29 09:27 | Outpatient (BNVA) | payer OTHER, SELFPAY | PROVIDERS: PCP Internal Medicine; Visit Provider Nurse Practitioner Psychiatric/Mental Health | DX: Z51.81 Encounter for therapeutic drug level monitoring (principal); F11.20 Opioid dependence, uncomplicated | CPT/HCPCS: 99213 ==

== ENCOUNTER 2023-05-27 09:39 | Outpatient (AMB) | payer MEDICAID, SELFPAY ==
--- NOTE | 2023-05-27 09:40 | A.OFFVIS_ITS ---
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 Allergies No Known Allergies [No Known Allergies*] Allergy (Verified 05/27/23 09:44) Do you need a note to return to daycare/school/sports/work: No HPI mat visit HPI Details Pt presents for OUD treatment follow up Currently being prescribed Suboxone 8mg BID Denies any side effects related to medication Discussed cocaine use, 2-3x/week risk reduction discussion [facility] Medical History Cocaine use disorder History of arm fracture Menieres disease Opioid use disorder Tobacco use disorder Social History Household Members: None Household Members Other:: Fiance Alcohol intake: current Alcohol intake frequency: does not drink Patient Tobacco Use Status: Current everyday Tobacco user Tobacco use type: Cigarette Cigarette Packs Per Day: 0.5 Cigarettes Per Day: 10 Years Smoked: 20 Substance Use Type: Heroin and Other Review of Systems Const Reports as per HPI and Reports no additional complaints Physical Exam Vital Signs: Last Vital Signs Pulse 93 05/27/23 09:44 BP 110/72 05/27/23 09:44 Pulse Ox 97 05/27/23 09:44 Oxygen Delivery Method Room Air 05/27/23 09:44 Const General: cooperative and no acute distress Psych Appearance: grossly normal Affect: normal affect Attitude: cooperative Thought process: Normal thought process present Thought content: Normal thought content present Insight: Fair insight present (Psych) Assessment & Plan Assessment & Plan (1) Other senior care (current) drug therapy: Code(s): Z79.899 - Other terminologist (current) drug therapy (2) Opioid use disorder: Code(s): F11.99 - Opioid use, unspecified with unspecified opioid-induced disorder Plan: * risk reduction reviewed * continue suboxone at current dose * follow up 4 weeks Orders: Orders Liver Panel Today Z79.899 - Other terminologist (current) drug therapy Medications: Refilled buprenorphine-naloxone 8-2 mg (Suboxone) 1 film sublingual BID 60 ea 0RF Coding Level of Care Code Est Pt Level 3 (68136) Diagnoses Other senior care (current) drug therapy Z79.899 Opioid use disorder F11.99
[2023-05-27 09:44] VITALS: BP 110/72; PULSE 93; O2SAT 97
== END 2023-05-27 10:22 | disposition home or self-care (01) ==
LOC: HO.HCC 09:39
PROVIDERS: PCP Internal Medicine; Visit Provider Nurse Practitioner Psychiatric/Mental Health
DX: F11.99 Opioid use, unspecified with unspecified opioid-induced disorder (principal); Z79.899 Other long term (current) drug therapy
CPT/HCPCS: 99213

== ENCOUNTER → 2023-05-27 09:39 | Outpatient (BNVA) | payer OTHER, SELFPAY | PROVIDERS: PCP Internal Medicine; Visit Provider Nurse Practitioner Psychiatric/Mental Health | DX: F11.20 Opioid dependence, uncomplicated (principal); Z72.0 Tobacco use; Z51.81 Encounter for therapeutic drug level monitoring; Z79.899 Other long term (current) drug therapy | CPT/HCPCS: 99213 ==

== ENCOUNTER 2023-06-02 13:41 | Emergency (ER) | payer OTHER, SELFPAY ==
[2023-06-02 13:47] VITALS: BP 128/87; BP 137/86; PULSE 86; PULSE 92; RESP 16; TEMP 36.9; O2SAT 100; O2SAT 99; BMI 18.2
--- NOTE | 2023-06-02 13:52 | ED.GENADULT ---
HPI - General Adult General Chief complaint: Overdose Stated complaint: OPIATE OVERDOSE,NARCAN GIVEN Time Seen by Provider: 06/02/23 13:51 Source: patient, EMS and old records reviewed Mode of arrival: EMS Limitations: no limitations History of Present Illness HPI narrative: Patient is a 47 year old assigned male at with a history of opioid abuse presenting to the emergency department today after an accidental overdose. Patient states that he used heroin today and accidentally overdosed. Patient denies any SI or HI. Patient denies any dizziness, lightheadedness, abdominal pain, nausea, vomiting, fever, chills, blurry vision, double vision, loss of vision, chest pain, difficulty breathing, shortness of breath, back pain, night sweats, pain with urination, increased urinary frequency, increased urinary urgency, blood in his urine or stool, syncope or a near syncopal episode, recent trauma or falls, bowel incontinence, bladder incontinence, bowel retention, bladder retention, or any other complaints at this time. Relieving factors: none Exacerbating factors: none Associated symptoms: denies other symptoms Treatments prior to arrival: none Related Data Previous Rx's Medication Instructions Recorded naloxone 4 mg/actuation nasal 4 mg intranasal Q2M PRN opioid 06/04/21 spray (Narcan) overdose #2 ea acamprosate 333 mg tablet,delayed 666 mg PO TID #180 tabs 04/29/23 release buprenorphine 8 mg-naloxone 2 mg 1 film sublingual BID #60 ea 05/27/23 sublingual film (Suboxone) Allergies Allergy/AdvReac Type Severity Reaction Status Date / Time No Known Allergies Allergy Verified 05/27/23 09:44 [No Known Allergies*] Review of Systems Constitutional: Constitutional: Reports no additional constitutional complaints, Denies chills, Denies fever(s) and Denies night sweats Eyes: Eyes: Reports no additional eye complaints, Denies blurry vision, Denies change in vision, Denies diplopia, Denies eye discharge, Denies loss of vision and Denies eye pain ENT: Denies dizziness Cardiovascular: Cardiovascular: Reports no additional cardiovascular complaints, Denies chest pain, Denies lightheadedness, Denies Loss of Consciousness and Denies dyspnea Respiratory: Respiratory: Reports no additional respiratory complaints and Denies dyspnea Gastrointestinal: Gastrointestinal: Reports no additional gastrointestinal complaints, Denies abdominal pain, Denies melena, Denies hematochezia, Denies change in bowel habits and Denies change in stool character Genitourinary: Genitourinary: Reports no additional male genitourinary complaints, Denies hematuria, Denies oliguria, Denies difficulty urinating, Denies dysuria, Denies urinary frequency, Denies urinary hesitancy, Denies urinary incontinence and Denies urinary urgency Musculoskeletal: Musculoskeletal: Reports no additional musculoskeletal complaints, Denies numbness and Denies tingling Neurologic: Denies dizziness, Denies loss of vision, Denies numbness and Denies tingling Psychiatric: Psychiatric: Reports no additional psychiatric complaints Endocrine: Endocrine: Reports no additional endocrine complaints Hematologic/Lymphatic: Hematologic/Lymphatic: Reports no additional hematologic/lymphatic complaints Allergic/Immunologic: Allergic/Immunologic: Reports no additional allergic/immunologic complaints PMFSH Past Medical History Attestation statement: The following information was validated with the patient. 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 Tobacco use disorder Social History Social History Household Members: None Household Members Other:: Fiance Alcohol intake: current Alcohol intake frequency: does not drink Patient Tobacco Use Status: Current everyday Tobacco user Tobacco use type: Cigarette Cigarette Packs Per Day: 0.5 Cigarettes Per Day: 10 Years Smoked: 20 Smoked in Last 30 Days: Yes Use of substances other than those prescribed or required for medical reasons: Yes Substance Use Type: Crack/Cocaine and Heroin Substance Use Type Other:: pt on suboxone Advance Directives: No Advance Directives Information Provided: No Physical Exam ED Vital Signs: Vital Signs - 24 hr 06/02/23 13:47 Temperature 98.4 F Pulse Rate 86 Respiratory Rate 16 Blood Pressure 128/87 Pulse Oximetry 99 Oxygen Delivery Method Room Air BMI result Body Mass Index 18.2 Const General: cooperative, no acute distress, alert and awake Nutritional Appearance: well nourished Orientation/consciousness: patient oriented x3 Limitations: no limitations HENMT Head: Yes normal to inspection and Yes atraumatic Ears: hearing grossly normal bilaterally and external ears normal General nose exam: Normal external nose present, no nasal discharge noted and no epistaxis Face and sinus: Yes normal facial exam, No abrasion and No laceration Mouth: Normal oral and palatal mucosa present, no drooling and no muffled voice Eyes General: appearance normal, both eyes and all related structures Periorbital: periorbital findings normal Eyelids: Yes eyelids normal Conjunctivae: conjunctivae normal Pupils: Equal, round and reactive pupils present EOM: EOMs intact bilaterally Neck Neck: Yes normal visual inspection, Yes full ROM and Yes no lymphadenopathy Chest Chest palpation & inspection: normal inspection of the chest Resp Effort & Inspection: normal respiratory effort and able to speak in complete sentences Auscultation: clear to auscultation bilaterally Cardio Rate: regular rate Rhythm: regular rhythm GI Inspection: Yes normal to inspection Palpation (GI): Soft to palpation, not firm, nontender, no guarding and not rigid Neuro General: patient oriented x3 and moves all extremities Cranial nerves: Yes Equal, round and reactive pupils present Cognition (Neuro): normal cognition Motor exam (neuro): 5/5 motor strength present throughout Sensory Exam: Normal double simultaneous stimulation for sensation Coordination: [id number] test normal Extrem General: Yes normal to inspection, Yes full ROM and Yes capillary refill normal Psych Appearance: grossly normal Mental Status: mental status grossly normal Affect: normal affect Attitude: cooperative Thought process: Normal thought process present Thought content: Normal thought content present Insight: Good insight present (Psych) Medications Administered Discontinued Medications Generic Name Dose Route Start Last Admin Trade Name Slimq PRN Reason Stop Dose Admin Naloxone HCl 8 mg 06/02/23 13:54 06/02/23 14:23 Naloxone Hcl Nasal Take Home 4 Mg Guion NOSTRILALT 06/02/23 13:55 8 mg ONCE ONE Administration Medical Decision Making Medical Decision Making [facility] Narrative: Patient is a 47 year old assigned male at with a history of opioid abuse presenting to the emergency department today after an accidental overdose. Patient's physical exam was unremarkable. Patient met with recovery team. I explained my physical exam findings to the patient. I answered all questions asked by the patient. I stressed the importance of the patient taking his medication as prescribed. I stressed the importance of the patient following up with his primary care provider. I stressed the importance of the patient returning to the emergency department immediately if his symptoms were to worsen or if he were to develop any dizziness, shortness of breath, difficulty breathing, chest pain, blurry vision, loss of vision, nausea, vomiting, abdominal pain, fever, chills, back pain, or any other complaints. Patient verbalized agreement and understanding with this treatment plan and discharge. Differential Diagnosis Differential Diagnoses: The differential diagnosis associated with the presentation includes Accidental overdose Heroin use Opiate use Consult Healthcare Provider Management of the patient was discussed with: Behavioral Health Provider (spoke with recovery team as noted in the MDM portion of this note) Independent Historian Clinical information obtained from an independent historian. History obtained from or confirmed by: EMS (EMS provided additional history and confirmed the history provided by the patient.) Discharge Plan Discharge Clinical Impression: Opioid use disorder Patient Disposition: Home, Self-Care Instructions: Opioid Use Disorder (ED) Additional Instructions: Follow up with your primary care provider. Return to the emergency department immediately if your symptoms worsen or if you develop any dizziness, shortness of breath, difficulty breathing, chest pain, blurry vision, loss of vision, nausea, vomiting, abdominal pain, fever, chills, back pain, or any other complaints. [facility]: [address] [place] [address] [phone] Walk in hours from 10am - 12pm Open from 10am - 12pm [facility] Crisis Services: [address] [place] [address] Walk in hours from 10am - 12pm Open 09/05 Behavioral health Network: [address] [place] [id number] [address] [place] [id number] Hours: M-F 8am to 8pm Tuesday and Tuesday 9am to 5pm Prescriptions: No Action acamprosate 333 mg tablet,delayed release (DR/EC) 666 mg PO TID Qty: 180 0RF Narcan 4 mg/actuation spray,non-aerosol 4 mg intranasal Q2M PRN (Reason: opioid overdose) Qty: 2 0RF Rx Instructions: spray 1 dose into ONE nostril; alternate nostrils w each dose until help arrives buprenorphine-naloxone [Suboxone] 8-2 mg film 1 film sublingual BID Qty: 60 0RF Referrals: [facility] [Provider Group] (Call to establish and follow up with a primary care provider. If you already have a primary care provider, please follow up with them.) [facility] [Provider Group] (Call to establish and follow up with a primary care provider. If you already have a primary care provider, please follow up with them.) [facility] [Provider Group] (Call to establish and follow up with a primary care provider. If you already have a primary care provider, please follow up with them.) Print Language: Cook Islander
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
[2023-06-02] MEDS: Naloxone HCl Nasal TAKE HOME 4 MG SPRAY 8 MG NOSTRILALT (14:23)
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
== END 2023-06-02 15:25 | disposition home or self-care (01) ==
PROVIDERS: Emergency Provider Emergency Medicine
DX: F11.29 Opioid dependence with unspecified opioid-induced disorder (principal); F17.210 Nicotine dependence, cigarettes, uncomplicated
CPT/HCPCS: 99284; 99285

== ENCOUNTER 2023-08-12 09:41 | Outpatient (AMB) | payer OTHER, SELFPAY ==
--- NOTE | 2023-08-12 09:41 | A.OFFVIS_ITS ---
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 Required: No Allergies No Known Allergies [No Known Allergies*] Allergy (Verified 08/12/23 09:46) Medication List - Last Reconciled 08/12/23 by Caprice Faustin CNP buprenorphine-naloxone 8-2 mg (Suboxone) 1 film sublingual BID naloxone 4 mg/actuation (Narcan) 4 mg intranasal Q2M PRN Do you need a note to return to daycare/school/sports/work: No HPI MAT Visit HPI Details Patient presents for follow up Released from long term yesterday Suboxone while there Living in [place] Patient working with chief sustainability officer to get into therapy [facility], still working through loss of his partner. 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 Tobacco use disorder Social History Household Members: None Household Members Other:: Fiance Alcohol intake: current Alcohol intake frequency: does not drink Patient Tobacco Use Status: Current everyday Tobacco user Tobacco use type: Cigarette Cigarette Packs Per Day: 0.5 Cigarettes Per Day: 10 Years Smoked: 20 Substance Use Type: Crack/Cocaine and Heroin Review of Systems Const Reports as per HPI Physical Exam Vital Signs: Last Vital Signs Pulse 74 08/12/23 09:45 BP 110/70 08/12/23 09:45 Pulse Ox 97 08/12/23 09:45 Oxygen Delivery Method Room Air 08/12/23 09:45 Const General: cooperative and no acute distress Psych Appearance: grossly normal Affect: Blunted affect present Attitude: cooperative Thought process: Normal thought process present Thought content: Normal thought content present Insight: Fair insight present (Psych) Judgement: Fair judgement present (Psych) Assessment & Plan Assessment & Plan (1) Opioid use disorder: Code(s): F11.99 - Opioid use, unspecified with unspecified opioid-induced disorder Plan: * continue suboxone at current dose * follow up one week Medications: Refilled buprenorphine-naloxone 8-2 mg (Suboxone) 1 film sublingual BID 15 ea 0RF Coding Level of Care Code Est Pt Level 3 (33973) Diagnoses Opioid use disorder F11.99
[2023-08-12 09:45] VITALS: BP 110/70; PULSE 74; O2SAT 97
== END 2023-08-12 09:58 | disposition home or self-care (01) ==
PROVIDERS: Visit Provider Nurse Practitioner Psychiatric/Mental Health
DX: F11.99 Opioid use, unspecified with unspecified opioid-induced disorder (principal)
CPT/HCPCS: 99213

== ENCOUNTER → 2023-08-12 09:41 | Outpatient (BNVA) | payer OTHER, SELFPAY | PROVIDERS: Visit Provider Nurse Practitioner Psychiatric/Mental Health | DX: F11.20 Opioid dependence, uncomplicated (principal) | CPT/HCPCS: 99212 ==

== ENCOUNTER 2023-08-17 14:07 | Outpatient (AMB) | payer OTHER, SELFPAY ==
--- NOTE | 2023-08-17 14:08 | A.OFFVIS_ITS ---
Intake Vital Signs 08/17/23 14:12 BP 110/72 Blood Pressure Location Lt radial Position Sitting Pulse 84 Pulse Source Pulse Oximeter Pulse Oximetry (%) 99 Oxygen Delivery Method Room Air Intake Visit Reasons: MAT Visit Allergies No Known Allergies [No Known Allergies*] Allergy (Verified 08/12/23 09:46) HPI MAT Visit HPI Details Patient presents for follow up Reporting several aptpts during the week Slightly brighter affect, discussing motivation to continue working on recovery is regaining custody of his daughter. Denies any thoughts of using. Current suboxone dose working well for him [facility] Medical History Cocaine use disorder History of arm fracture Menieres disease Opioid use disorder Other residential (current) drug therapy Tobacco use disorder Social History Household Members: None Household Members Other:: Fiance Alcohol intake: current Alcohol intake frequency: does not drink Patient Tobacco Use Status: Current everyday Tobacco user Tobacco use type: Cigarette Cigarette Packs Per Day: 0.5 Cigarettes Per Day: 10 Years Smoked: 20 Substance Use Type: Crack/Cocaine and Heroin Review of Systems Const Reports as per HPI and Reports no additional complaints Physical Exam Vital Signs: Last Vital Signs Pulse 84 08/17/23 14:12 BP 110/72 08/17/23 14:12 Pulse Ox 99 08/17/23 14:12 Oxygen Delivery Method Room Air 08/17/23 14:12 Const General: cooperative and no acute distress Psych Appearance: grossly normal Affect: Blunted affect present Attitude: cooperative Thought process: Normal thought process present Thought content: Normal thought content present Insight: Fair insight present (Psych) Judgement: Fair judgement present (Psych) Assessment & Plan Assessment & Plan (1) Opioid use disorder: Code(s): F11.99 - Opioid use, unspecified with unspecified opioid-induced disorder Plan: * continue suboxone at current dose * relapse prevention discussion * follow up one week (2) Cocaine use disorder: Code(s): F14.10 - Cocaine abuse, uncomplicated Medications: Refilled buprenorphine-naloxone 8-2 mg (Suboxone) 1 film sublingual BID 15 ea 0RF Coding Level of Care Code Est Pt Level 3 (26211) Diagnoses Opioid use disorder F11.99 Cocaine use disorder F14.10
[2023-08-17 14:12] VITALS: BP 110/72; PULSE 84; O2SAT 99
== END 2023-08-17 14:42 | disposition home or self-care (01) ==
PROVIDERS: Visit Provider Nurse Practitioner Psychiatric/Mental Health
DX: F11.99 Opioid use, unspecified with unspecified opioid-induced disorder (principal); F14.10 Cocaine abuse, uncomplicated
CPT/HCPCS: 99213

== ENCOUNTER → 2023-08-17 14:07 | Outpatient (BNVA) | payer OTHER, SELFPAY | PROVIDERS: Visit Provider Nurse Practitioner Psychiatric/Mental Health | DX: F11.20 Opioid dependence, uncomplicated (principal); F14.10 Cocaine abuse, uncomplicated | CPT/HCPCS: 99212 ==

== ENCOUNTER 2023-08-24 13:24 | Outpatient (AMB) | payer OTHER, SELFPAY ==
--- NOTE | 2023-08-25 16:44 | A.OFFVIS_ITS ---
Intake Intake Visit Reasons: MAT Visit Allergies No Known Allergies [No Known Allergies*] Allergy (Verified 08/12/23 09:46) HPI MAT Visit HPI Details Patient presents for follow up Appears to be under the influence of something--appearing quite drowsy. 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 Tobacco use disorder Social History Household Members: None Household Members Other:: Fiance Alcohol intake: current Alcohol intake frequency: does not drink Patient Tobacco Use Status: Current everyday Tobacco user Tobacco use type: Cigarette Cigarette Packs Per Day: 0.5 Cigarettes Per Day: 10 Years Smoked: 20 Substance Use Type: Crack/Cocaine and Heroin Review of Systems Const Reports as per HPI Physical Exam Psych Mental Status: other Speech and movement: Slowed movement present (Neuro) Assessment & Plan Assessment & Plan (1) Opioid use disorder: Code(s): F11.99 - Opioid use, unspecified with unspecified opioid-induced disorder Plan: * follow up one week * risk reduction discussion Medications: Refilled buprenorphine-naloxone 8-2 mg (Suboxone) 1 film sublingual BID 15 ea 1RF Coding Level of Care Code Est Pt Level 3 (34140) Diagnoses Opioid use disorder F11.99
== END 2023-08-24 13:36 | disposition home or self-care (01) ==
PROVIDERS: Visit Provider Nurse Practitioner Psychiatric/Mental Health
DX: F11.99 Opioid use, unspecified with unspecified opioid-induced disorder (principal)
CPT/HCPCS: 99213

== ENCOUNTER → 2023-08-24 13:24 | Outpatient (BNVA) | payer OTHER, SELFPAY | PROVIDERS: Visit Provider Nurse Practitioner Psychiatric/Mental Health | DX: F11.20 Opioid dependence, uncomplicated (principal) | CPT/HCPCS: 99212 ==

== ENCOUNTER 2023-09-07 13:40 | Outpatient (AMB) | payer OTHER, SELFPAY ==
--- NOTE | 2023-09-07 13:41 | MHC.OFFVIS ---
Intake Vital Signs 09/07/23 13:44 BP 136/80 Blood Pressure Location Lt radial Position Sitting Pulse 61 Pulse Source Pulse Oximeter Pulse Oximetry (%) 98 Oxygen Delivery Method Room Air Intake Visit Reasons: MAT Visit Intake Note: The patient presents for a mat visit Solderer Furnace Required: No Allergies No Known Allergies [No Known Allergies*] Allergy (Verified 09/07/23 13:45) Do you need a note to return to daycare/school/sports/work: No HPI MAT Visit HPI Details Patient presents for follow up Has been seeing therapist as well Supervised visits with daughter Sleep varies--discussed starting depression and anxiety medication. Patient agreeable. Also discussed referral to PHP. Patient will call for an intake appt. [facility] Medical History Cocaine use disorder History of arm fracture Menieres disease Opioid use disorder Other [facility] drug [facility] Tobacco use disorder Social History Household Members: None Household Members Other:: Fiance Alcohol intake: current Alcohol intake frequency: does not drink Patient Tobacco Use Status: Current everyday Tobacco user Tobacco use type: Cigarette Cigarette Packs Per Day: 0.5 Cigarettes Per Day: 10 Years Smoked: 20 Substance Use Type: Crack/Cocaine and Heroin Review of Systems Const Reports as per HPI Physical Exam Vital Signs: Last Vital Signs Pulse 61 09/07/23 13:44 BP 136/80 09/07/23 13:44 Pulse Ox 98 09/07/23 13:44 Oxygen Delivery Method Room Air 09/07/23 13:44 Const General: cooperative, healthy appearing and anxious Orientation/consciousness: patient oriented x3 Neuro General: patient oriented x3 Psych Appearance: well kempt Speech and movement: Clear speech present Affect: Sad affect present Attitude: cooperative Insight: Fair insight present (Psych) Judgement: Fair judgement present (Psych) Assessment & Plan Assessment & Plan (1) Opioid use disorder: Code(s): F11.99 - Opioid use, unspecified with unspecified opioid-induced disorder Plan: continue suboxone at current dose follow up 2 weeks agreeable to restarting mirtazipine (has been prescribed this in the past) Medications: New nicotine 1 patch transdermal DAILY 28 ea 1RF nicotine (polacrilex) 2 mg buccal Q3H PRN 108 ea 0RF nicotine cravings mirtazapine 7.5 mg PO BEDTIME 30 tabs 0RF Refilled buprenorphine-naloxone 8-2 mg (Suboxone) 1 film sublingual BID 28 ea 0RF Coding Level of Care Code Est Pt Level 4 (28497) Diagnoses Opioid use disorder F11.99
[2023-09-07 13:44] VITALS: BP 136/80; PULSE 61; O2SAT 98
== END 2023-09-07 14:18 | disposition home or self-care (01) ==
PROVIDERS: Visit Provider Nurse Practitioner Psychiatric/Mental Health
DX: F11.99 Opioid use, unspecified with unspecified opioid-induced disorder (principal)
CPT/HCPCS: 99214

== ENCOUNTER → 2023-09-07 13:40 | Outpatient (BNVA) | payer OTHER, SELFPAY | PROVIDERS: Visit Provider Nurse Practitioner Psychiatric/Mental Health | DX: F14.20 Cocaine dependence, uncomplicated (principal); F11.20 Opioid dependence, uncomplicated; F17.210 Nicotine dependence, cigarettes, uncomplicated; Z51.81 Encounter for therapeutic drug level monitoring; Z79.899 Other long term (current) drug therapy | CPT/HCPCS: 99212 ==

== ENCOUNTER 2023-09-20 11:36 | Outpatient (AMB) | payer OTHER, SELFPAY ==
--- NOTE | 2023-09-20 11:40 | A.OFFVIS_ITS ---
Intake Vital Signs 09/20/23 11:44 BP 132/78 Blood Pressure Location Lt radial Position Sitting Pulse 94 Pulse Source Pulse Oximeter Pulse Oximetry (%) 99 Oxygen Delivery Method Room Air Intake Visit Reasons: mat visit Intake Note: the patient presents for a mat visit Life Enrichment Manager Required: No Allergies No Known Allergies [No Known Allergies*] Allergy (Verified 09/20/23 11:45) Do you need a note to return to daycare/school/sports/work: No HPI mat visit HPI Details Patient presents for RUBEN treatment follow up Recently started mirtazipine --improved sleep Tearful during visit, unable to see his daughter during her birthday [facility] Medical History Cocaine use disorder History of arm fracture Menieres disease Opioid use disorder Other [facility] (current) drug therapy Tobacco use disorder Social History Household Members: None Household Members Other:: Fiance Alcohol intake: current Alcohol intake frequency: does not drink Patient Tobacco Use Status: Current everyday Tobacco user Tobacco use type: Cigarette Cigarette Packs Per Day: 0.5 Cigarettes Per Day: 10 Years Smoked: 20 Substance Use Type: Crack/Cocaine and Heroin Review of Systems Const Reports as per HPI and Reports no additional complaints Physical Exam Vital Signs: Last Vital Signs Pulse 94 09/20/23 11:44 BP 132/78 09/20/23 11:44 Pulse Ox 99 09/20/23 11:44 Oxygen Delivery Method Room Air 09/20/23 11:44 Const General: cooperative, healthy appearing and anxious Orientation/consciousness: patient oriented x3 Neuro General: patient oriented x3 Psych Appearance: well kempt Speech and movement: Clear speech present Affect: Sad affect present Attitude: cooperative Insight: Fair insight present (Psych) Judgement: Fair judgement present (Psych) Assessment & Plan Assessment & Plan (1) Opioid use disorder: Code(s): F11.99 - Opioid use, unspecified with unspecified opioid-induced disorder Plan: * continue suboxone at current dose * follow up 2 weeks Medications: Refilled buprenorphine-naloxone 8-2 mg (Suboxone) 1 film sublingual BID 28 ea 0RF Coding Level of Care Code Est Pt Level 3 (35828) Diagnoses Opioid use disorder F11.99
[2023-09-20 11:44] VITALS: BP 132/78; PULSE 94; O2SAT 99
== END 2023-09-20 13:06 | disposition home or self-care (01) ==
PROVIDERS: Visit Provider Nurse Practitioner Psychiatric/Mental Health
DX: F11.99 Opioid use, unspecified with unspecified opioid-induced disorder (principal)
CPT/HCPCS: 99213

== ENCOUNTER → 2023-09-20 11:36 | Outpatient (BNVA) | payer OTHER, SELFPAY | PROVIDERS: Visit Provider Nurse Practitioner Psychiatric/Mental Health | DX: F11.20 Opioid dependence, uncomplicated (principal) | CPT/HCPCS: 99212 ==

== ENCOUNTER 2023-10-04 11:41 | Outpatient (AMB) | payer OTHER, SELFPAY ==
--- NOTE | 2023-10-04 11:43 | A.OFFVIS_ITS ---
Intake Vital Signs 10/04/23 11:46 BP 120/82 Blood Pressure Location Lt radial Position Sitting Pulse 88 Pulse Source Pulse Oximeter Pulse Oximetry (%) 98 Oxygen Delivery Method Room Air Intake Visit Reasons: mat visit Intake Note: THE PATIENT PRESENTS FOR A MAT VISIT Avionics Supervisor Required: No Allergies No Known Allergies [No Known Allergies*] Allergy (Verified 10/04/23 11:48) Do you need a note to return to daycare/school/sports/work: No HPI mat visit HPI Details Patient presents for RUBEN treatment follow up Tolerating current suboxone dose Tolerating mirtazipine --sleep improved Still engaged with therapy once per week [facility] Medical History Cocaine use disorder History of arm fracture Menieres disease Opioid use disorder Other halfway (current) drug therapy Tobacco use disorder Social History Household Members: None Household Members Other:: Fiance Alcohol intake: current Alcohol intake frequency: does not drink Patient Tobacco Use Status: Current everyday Tobacco user Tobacco use type: Cigarette Cigarette Packs Per Day: 0.5 Cigarettes Per Day: 10 Years Smoked: 20 Substance Use Type: Crack/Cocaine and Heroin Review of Systems Const Reports as per HPI and Reports no additional complaints Physical Exam Vital Signs: Last Vital Signs Pulse 88 10/04/23 11:46 BP 120/82 10/04/23 11:46 Pulse Ox 98 10/04/23 11:46 Oxygen Delivery Method Room Air 10/04/23 11:46 Const General: cooperative, healthy appearing and anxious Orientation/consciousness: patient oriented x3 Neuro General: patient oriented x3 Psych Appearance: well kempt Speech and movement: Clear speech present Affect: Sad affect present Attitude: cooperative Insight: Fair insight present (Psych) Judgement: Fair judgement present (Psych) Assessment & Plan Assessment & Plan (1) Opioid use disorder: Code(s): F11.99 - Opioid use, unspecified with unspecified opioid-induced disorder Plan: * continue suboxone at current dose * follow up 3 weeks Medications: Refilled buprenorphine-naloxone 8-2 mg (Suboxone) 1 film sublingual BID 42 ea 0RF Coding Level of Care Code Est Pt Level 3 (08557) Diagnoses Opioid use disorder F11.99
[2023-10-04 11:46] VITALS: BP 120/82; PULSE 88; O2SAT 98
== END 2023-10-04 14:34 | disposition home or self-care (01) ==
PROVIDERS: Visit Provider Nurse Practitioner Psychiatric/Mental Health
DX: F11.99 Opioid use, unspecified with unspecified opioid-induced disorder (principal)
CPT/HCPCS: 99213

== ENCOUNTER → 2023-10-04 11:41 | Outpatient (BNVA) | payer OTHER, SELFPAY | PROVIDERS: Visit Provider Nurse Practitioner Psychiatric/Mental Health | DX: F11.20 Opioid dependence, uncomplicated (principal) | CPT/HCPCS: 99212 ==

== ENCOUNTER 2023-10-25 12:57 | Outpatient (AMB) | payer OTHER, SELFPAY ==
[2023-10-25 13:13] VITALS: BP 110/78; PULSE 88; O2SAT 95
--- NOTE | 2023-10-25 13:13 | MHC.AM.SUB ---
Intake Vital Signs 10/25/23 13:13 BP 110/78 Blood Pressure Location Lt radial Position Sitting Pulse 88 Pulse Source Pulse Oximeter Pulse Oximetry (%) 95 Oxygen Delivery Method Room Air Intake Visit Reasons: MAT Visit Intake Note: the patient presents for a mat visit Veterinary Laboratory Diagnostician Required: No Allergies No Known Allergies [No Known Allergies*] Allergy (Verified 10/25/23 13:14) Do you need a note to return to daycare/school/sports/work: No HPI MAT Visit HPI Details Patient presents for RUBEN treatment follow up Currently prescribed Suboxone 8mg BID Reports he was sick for 2 weeks over the holidays. Did not call PHP to set up intake, but still planning to do so Eye contact still very poor, however affect much brighter than previous visits. 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 Tobacco use disorder Social History Household Members: None Household Members Other:: Fiance Alcohol intake: current Alcohol intake frequency: does not drink Patient Tobacco Use Status: Current everyday Tobacco user Tobacco use type: Cigarette Cigarette Packs Per Day: 0.5 Cigarettes Per Day: 10 Years Smoked: 20 Substance Use Type: Crack/Cocaine and Heroin Review of Systems Const Reports as per HPI and Reports no additional complaints Physical Exam Vital Signs: Last Vital Signs Pulse 88 10/25/23 13:13 BP 110/78 10/25/23 13:13 Pulse Ox 95 10/25/23 13:13 Oxygen Delivery Method Room Air 10/25/23 13:13 Const General: cooperative, healthy appearing and well groomed Nutritional Appearance: thin Psych Appearance: well kempt Speech and movement: Clear speech present Affect: normal affect Attitude: cooperative Thought process: Normal thought process present Thought content: Normal thought content present Insight: Fair insight present (Psych) Judgement: Fair judgement present (Psych) Assessment & Plan Assessment & Plan (1) Opioid use disorder: Code(s): F11.99 - Opioid use, unspecified with unspecified opioid-induced disorder Plan: continue suboxone at current dose refilled mirtazipine follow up 2 weeks Medications: Refilled mirtazapine 7.5 mg PO BEDTIME 30 tabs 0RF buprenorphine-naloxone 8-2 mg (Suboxone) 1 film sublingual BID 29 ea 0RF Coding Level of Care Code Est Pt Level 3 (70720) Diagnoses Opioid use disorder F11.99
== END 2023-10-25 13:18 | disposition home or self-care (01) ==
PROVIDERS: Visit Provider Nurse Practitioner Psychiatric/Mental Health
DX: F11.99 Opioid use, unspecified with unspecified opioid-induced disorder (principal)
CPT/HCPCS: 99213

== ENCOUNTER → 2023-10-25 12:57 | Outpatient (BNVA) | payer OTHER, SELFPAY | PROVIDERS: Visit Provider Nurse Practitioner Psychiatric/Mental Health | DX: F11.20 Opioid dependence, uncomplicated (principal) | CPT/HCPCS: 99212 ==

== ENCOUNTER 2023-11-08 12:57 | Outpatient (AMB) | payer OTHER, SELFPAY ==
--- NOTE | 2023-11-08 12:58 | MHC.AM.SUB ---
Intake Vital Signs 11/08/23 13:02 BP 118/70 Blood Pressure Location Lt radial Position Sitting Pulse 89 Pulse Source Pulse Oximeter Pulse Oximetry (%) 99 Oxygen Delivery Method Room Air Intake Visit Reasons: MAT Visit Intake Note: the patient presents for a mat visit Mechanical Manufacturing Technician Required: No Allergies No Known Allergies [No Known Allergies*] Allergy (Verified 11/08/23 12:59) Do you need a note to return to daycare/school/sports/work: No HPI MAT Visit HPI Details Patient presents for RUBEN treatment follow up Brighter affect --still attending every week PT-1 recently approved --living [place] Increased amount of time with his daughter Still taking mirtazipine--notices that his mood has improved [facility] Medical History Cocaine use disorder History of arm fracture Menieres disease Opioid use disorder 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99 - Opioid use, unspecified with unspecified opioid-induced disorder Plan: continue suboxone at current dose continue mirtazipine follow up 2 weeks Medications: Refilled buprenorphine-naloxone 8-2 mg (Suboxone) 1 film sublingual BID 60 ea 0RF Coding Level of Care Code Est Pt Level 3 (08447) Diagnoses Opioid use disorder F11.99
[2023-11-08 13:02] VITALS: BP 118/70; PULSE 89; O2SAT 99
== END 2023-11-08 13:28 | disposition home or self-care (01) ==
PROVIDERS: Visit Provider Nurse Practitioner Psychiatric/Mental Health
DX: F11.99 Opioid use, unspecified with unspecified opioid-induced disorder (principal)
CPT/HCPCS: 99213

== ENCOUNTER → 2023-11-08 12:57 | Outpatient (BNVA) | payer OTHER, SELFPAY | PROVIDERS: Visit Provider Nurse Practitioner Psychiatric/Mental Health | DX: F11.20 Opioid dependence, uncomplicated (principal) | CPT/HCPCS: 99212 ==

== ENCOUNTER 2023-11-23 11:33 | Outpatient (AMB) | payer OTHER, SELFPAY ==
--- NOTE | 2023-11-23 11:34 | A.OFFVISCC_ITS ---
Intake Vital Signs 11/23/23 11:37 BP 114/70 Blood Pressure Location Lt radial Position Sitting Pulse 83 Pulse Source Pulse Oximeter Pulse Oximetry (%) 99 Oxygen Delivery Method Room Air Intake Visit Reasons: MAT Visit Intake Note: the patient presents for a mat visit Allergies No Known Allergies [No Known Allergies*] Allergy (Verified 11/23/23 11:38) Do you need a note to return to daycare/school/sports/work: No HPI MAT Visit HPI Details Pt presents for MAT visit He presents as guarded, poor eye contact Has no recovery concerns at this time Stable on current dose suboxone 8mg bid Requesting for refill on mirtazipine [facility] Medical History Cocaine use disorder History of arm fracture Menieres disease Opioid use disorder Other prison (current) drug therapy Tobacco use disorder Social History Household Members: None Household Members Other:: Fiance Alcohol intake: current Alcohol intake frequency: does not drink Patient Tobacco Use Status: Current everyday Tobacco user Tobacco use type: Cigarette Cigarette Packs Per Day: 0.5 Cigarettes Per Day: 10 Years Smoked: 20 Substance Use Type: Crack/Cocaine and Heroin Review of Systems Const Reports as per HPI Physical Exam Vital Signs: Last Vital Signs Pulse 83 11/23/23 11:37 BP 114/70 11/23/23 11:37 Pulse Ox 99 11/23/23 11:37 Oxygen Delivery Method Room Air 11/23/23 11:37 Const General: cooperative and no acute distress Resp Effort & Inspection: normal respiratory effort Psych Appearance: grossly normal Mental Status: mental status grossly normal Speech and movement: Normal speech and movement present Affect: Sad affect present Attitude: cooperative, Guarded attititude/behavior present and Avoids eye contact (attititude/behavior) Assessment & Plan Assessment & Plan (1) Opioid use disorder: Code(s): F11.99 - Opioid use, unspecified with unspecified opioid-induced disorder Plan: -Continue suboxone same dose -Refill sent for mirtazipine 7.5mg q HS -Mass pat reviewed -He denies need for refill suboxone at this time as he still has 2 weeks of films left -Follow up 2 weeks Medications: Refilled mirtazapine 7.5 mg PO BEDTIME 30 tabs 0RF Coding Level of Care Code Est Pt Level 3 (44569) Diagnoses Opioid use disorder F11.99
[2023-11-23 11:37] VITALS: BP 114/70; PULSE 83; O2SAT 99
== END 2023-11-23 11:44 | disposition home or self-care (01) ==
PROVIDERS: Visit Provider Nurse Practitioner Family
DX: F11.99 Opioid use, unspecified with unspecified opioid-induced disorder (principal)
CPT/HCPCS: 99213

== ENCOUNTER → 2023-11-23 11:33 | Outpatient (BNVA) | payer OTHER, SELFPAY | PROVIDERS: Visit Provider Nurse Practitioner Family | DX: F11.20 Opioid dependence, uncomplicated (principal) | CPT/HCPCS: 99212 ==

== ENCOUNTER 2023-12-07 13:24 | Outpatient (AMB) | payer OTHER, SELFPAY ==
--- NOTE | 2023-12-07 13:26 | MHC.AM.SUB ---
Intake Vital Signs 12/07/23 13:36 Height 5 ft 6 in Weight 157 lb 4 oz BMI 25.4 BP 124/76 Blood Pressure Location Lt radial Position Sitting Pulse 84 Pulse Source Pulse Oximeter Pulse Oximetry (%) 98 Oxygen Delivery Method Room Air Intake Visit Reasons: mat visit Intake Note: the patient is here for a mat visit Manager Ct Required: No Allergies No Known Allergies [No Known Allergies*] Allergy (Verified 12/07/23 13:38) HPI mat visit HPI Details Patient presents for OUD treatment follow up Currently prescribed Suboxone 8mg BID Hoping to start working soon looking into [employer] transportation continues to be an issue New [facility] worker--he feels positive about this change [facility] Medical History Cocaine use disorder History of arm fracture Menieres disease Opioid use disorder 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 Tobacco use disorder Social History Household Members: None Household Members Other:: Fiance Alcohol intake: current Alcohol intake frequency: does not drink Patient Tobacco Use Status: Current everyday Tobacco user Tobacco use type: Cigarette Cigarette Packs Per Day: 0.5 Cigarettes Per Day: 10 Years Smoked: 20 Substance Use Type: Crack/Cocaine and Heroin Review of Systems Const Reports as per HPI and Reports no additional complaints Physical Exam Vital Signs: Last Vital Signs Pulse 84 12/07/23 13:36 BP 124/76 12/07/23 13:36 Pulse Ox 98 12/07/23 13:36 Oxygen Delivery Method Room Air 12/07/23 13:36 BMI result Body Mass Index 25.4 Const General: cooperative and no acute distress Resp Effort & Inspection: normal respiratory effort Psych Appearance: grossly normal Mental Status: mental status grossly normal Speech and movement: Normal speech and movement present Attitude: cooperative and Avoids eye contact (attititude/behavior) Results AMB 14 Panel Urine Drug Screen Urine Marijuana (THC) Positive Last Edit by Pennie Rivera CMA on 12/07/23 13:39 Urine Cocaine Negative Last Edit by Pennie Rivera CMA on 12/07/23 13:39 Urine Morphine Negative Last Edit by Pennie Rivera CMA on 12/07/23 13:39 Urine Methamphetamine Negative Last Edit by Pennie Rivera CMA on 12/07/23 13:39 Urine Amphetamine Negative Last Edit by Pennie Rivera CMA on 12/07/23 13:39 Urine Benzodiazepine Negative Last Edit by Pennie Rivera CMA on 12/07/23 13:39 Urine Barbiturates Negative Last Edit by Pennie Rivera CMA on 12/07/23 13:39 Urine Methadone Negative Last Edit by Pennie Rivera CMA on 12/07/23 13:39 Urine Buprenorphine Positive Last Edit by Pennie Rivera CMA on 12/07/23 13:39 Urine Tricyclic Antidepressant Negative Last Edit by Pennie Rivera CMA on 12/07/23 13:39 Urine MDMA Negative Last Edit by Pennie Rivera CMA on 12/07/23 13:39 Urine Oxycodone Negative Last Edit by Pennie Rivera CMA on 12/07/23 13:39 Urine Phencyclidine Negative Last Edit by Pennie Rivera CMA on 12/07/23 13:39 Urine Propoxyphene Negative Last Edit by Pennie Rivera CMA on 12/07/23 13:39 Results Reviewed Results Reviewed: Laboratory Last Values POC Urine Buprenorphine Positive 12/07/23 13:26 POC Urine Morphine Negative 12/07/23 13:26 POC Urine Oxycodone Negative 12/07/23 13:26 POC Urine Methadone Negative 12/07/23 13:26 POC Urine Propoxyphene Negative 12/07/23 13:26 POC Urine Barbiturates Negative 12/07/23 13:26 POC U Tricyclic Antidpr Negative 12/07/23 13:26 POC Urine PCP Negative 12/07/23 13:26 POC Ur Amphetamines Negative 12/07/23 13:26 POC Ur Methamphetamine Negative 12/07/23 13:26 POC Urine MDMA Negative 12/07/23 13:26 POC Ur Benzodiazepine Negative 12/07/23 13:26 POC Urine Cocaine Negative 12/07/23 13:26 POC Ur Marijuana (THC) Positive 12/07/23 13:26 Assessment & Plan Assessment & Plan (1) Opioid use disorder: Code(s): F11.99 - Opioid use, unspecified with unspecified opioid-induced disorder Plan: continue suboxone at current dose follow up 2 weeks Orders: Orders AMB 14 Panel Urine Drug Screen Today Z51.81 - Encounter for therapeutic drug level monitoring Medications: Refilled buprenorphine-naloxone 8-2 mg (Suboxone) 1 film sublingual BID 60 ea 0RF Discontinued naloxone 4 mg/actuation (Narcan) spray 1 dose into ONE nostril; alternate nostrils w each dose until help arrives Discontinued Reason: Patient Refused 4 mg intranasal Q2M PRN 2 ea 0RF opioid overdose Coding Level of Care Code Est Pt Level 3 (38068) Diagnoses Opioid use disorder F11.99
[2023-12-07 13:36] VITALS: BP 124/76; PULSE 84; O2SAT 98; BMI 25.4
== END 2023-12-07 14:02 | disposition home or self-care (01) ==
PROVIDERS: Visit Provider Nurse Practitioner Psychiatric/Mental Health
DX: Z51.81 Encounter for therapeutic drug level monitoring (principal); F11.99 Opioid use, unspecified with unspecified opioid-induced disorder
CPT/HCPCS: 99213

== ENCOUNTER → 2023-12-07 13:24 | Outpatient (BNVA) | payer OTHER, SELFPAY | PROVIDERS: Visit Provider Nurse Practitioner Psychiatric/Mental Health | DX: F11.20 Opioid dependence, uncomplicated (principal) | CPT/HCPCS: 80305; 99212 ==

== ENCOUNTER 2023-12-21 13:38 | Outpatient (AMB) | payer OTHER, SELFPAY ==
--- NOTE | 2023-12-21 13:40 | MHC.AM.SUB ---
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 Agreeable to increasing dose to 15mg PFSH Medical History Cocaine use disorder History of arm fracture Menieres disease Opioid use disorder Other correction (current) drug therapy Tobacco use disorder Social History Household Members: None Household Members Other:: Fiance Alcohol intake: current Alcohol intake frequency: does not drink Patient Tobacco Use Status: Current everyday Tobacco user Tobacco use type: Cigarette Cigarette Packs Per Day: 0.5 Cigarettes Per Day: 10 Years Smoked: 20 Substance Use Type: Crack/Cocaine and Heroin Review of Systems Const Reports as per HPI Physical Exam Const General: cooperative and no acute distress Resp Effort & Inspection: normal respiratory effort Psych Appearance: grossly normal Mental Status: mental status grossly normal Speech and movement: Normal speech and movement present Attitude: cooperative and Avoids eye contact (attititude/behavior) Results AMB 14 Panel Urine Drug Screen Urine Marijuana (THC) Positive Last Edit by Pennie Rivera CMA on 12/21/23 13:53 Urine Cocaine Negative Last Edit by Pennie Rivera CMA on 12/21/23 13:53 Urine Morphine Negative Last Edit by Pennie Rivera CMA on 12/21/23 13:53 Urine Methamphetamine Negative Last Edit by Pennie Rivera CMA on 12/21/23 13:53 Urine Amphetamine Negative Last Edit by Pennie Rivera CMA on 12/21/23 13:53 Urine Benzodiazepine Negative Last Edit by Pennie Rivera CMA on 12/21/23 13:53 Urine Barbiturates Negative Last Edit by Pennie Rivera CMA on 12/21/23 13:53 Urine Methadone Negative Last Edit by Pennie Rivera CMA on 12/21/23 13:53 Urine Buprenorphine Positive Last Edit by Pennie Rivera CMA on 12/21/23 13:53 Urine Tricyclic Antidepressant Positive Last Edit by Pennie Rivera CMA on 12/21/23 13:53 Urine MDMA Negative Last Edit by Pennie Rivera CMA on 12/21/23 13:53 Urine Oxycodone Negative Last Edit by Pennie Rivera CMA on 12/21/23 13:53 Urine Phencyclidine Negative Last Edit by Pennie Rivera CMA on 12/21/23 13:53 Urine Propoxyphene Negative Last Edit by Pennie Rivera CMA on 12/21/23 13:53 Results Reviewed Results Reviewed: Laboratory Last Values POC Urine Buprenorphine Positive 12/21/23 13:42 POC Urine Morphine Negative 12/21/23 13:42 POC Urine Oxycodone Negative 12/21/23 13:42 POC Urine Methadone Negative 12/21/23 13:42 POC Urine Propoxyphene Negative 12/21/23 13:42 POC Urine Barbiturates Negative 12/21/23 13:42 POC U Tricyclic Antidpr Positive 12/21/23 13:42 POC Urine PCP Negative 12/21/23 13:42 POC Ur Amphetamines Negative 12/21/23 13:42 POC Ur Methamphetamine Negative 12/21/23 13:42 POC Urine MDMA Negative 12/21/23 13:42 POC Ur Benzodiazepine Negative 12/21/23 13:42 POC Urine Cocaine Negative 12/21/23 13:42 POC Ur Marijuana (THC) Positive 12/21/23 13:42 Assessment & Plan Assessment & Plan (1) Opioid use disorder: Code(s): F11.99 - Opioid use, unspecified with unspecified opioid-induced disorder Plan: continue suboxone at current dose follow up 2 weeks mirtazipine dose increased Orders: Orders AMB 14 Panel Urine Drug Screen Today Z51.81 - Encounter for therapeutic drug level monitoring Medications: New mirtazapine 15 mg PO BEDTIME 30 tabs 3RF Discontinued mirtazapine Discontinued Reason: Order 7.5 mg PO BEDTIME 30 tabs 0RF Coding Level of Care Code Est Pt Level 4 (83765) Diagnoses Opioid use disorder F11.99
== END 2023-12-21 14:14 | disposition home or self-care (01) ==
PROVIDERS: Visit Provider Nurse Practitioner Psychiatric/Mental Health
DX: F11.99 Opioid use, unspecified with unspecified opioid-induced disorder (principal); Z51.81 Encounter for therapeutic drug level monitoring
CPT/HCPCS: 99214

== ENCOUNTER → 2023-12-21 13:38 | Outpatient (BNVA) | payer OTHER, SELFPAY | PROVIDERS: Visit Provider Nurse Practitioner Psychiatric/Mental Health | DX: Z51.81 Encounter for therapeutic drug level monitoring (principal); F11.20 Opioid dependence, uncomplicated | CPT/HCPCS: 80305; 99212 ==

== ENCOUNTER 2024-01-04 13:28 | Outpatient (AMB) | payer OTHER, SELFPAY ==
--- NOTE | 2024-01-04 13:30 | MHC.AM.SUB ---
Intake Vital Signs 01/04/24 13:35 BP 110/74 Blood Pressure Location Lt radial Position Sitting Pulse 84 Pulse Source Pulse Oximeter Pulse Oximetry (%) 98 Oxygen Delivery Method Room Air Intake Visit Reasons: mat visit Intake Note: the patient presents for a mat visit Allergies No Known Allergies [No Known Allergies*] Allergy (Verified 12/21/23 13:42) HPI mat visit HPI Details Patient presents for follow up currently prescribed suboxone 8mg BID no issues related to medicaiton tolerating increase in mirtazipine. 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 Cocaine use disorder Tobacco use disorder Opioid use disorder Social History Household Members: None Household Members Other:: Fiance Alcohol intake: current Alcohol intake frequency: does not drink Patient Tobacco Use Status: Current everyday Tobacco user Tobacco use type: Cigarette Cigarette Packs Per Day: 0.5 Cigarettes Per Day: 10 Years Smoked: 20 Substance Use Type: Crack/Cocaine and Heroin Review of Systems Const Reports as per HPI Physical Exam Vital Signs: Last Vital Signs Pulse 84 01/04/24 13:35 BP 110/74 01/04/24 13:35 Pulse Ox 98 01/04/24 13:35 Oxygen Delivery Method Room Air 01/04/24 13:35 Const General: cooperative and no acute distress Resp Effort & Inspection: normal respiratory effort Psych Appearance: grossly normal Mental Status: mental status grossly normal Speech and movement: Normal speech and movement present Attitude: cooperative and Avoids eye contact (attititude/behavior) Assessment & Plan Assessment & Plan (1) Opioid use disorder, severe, in early remission: Code(s): F11.21 - Opioid dependence, in remission Plan: continue suboxone at current dose follow up 2 weeks Medications: Refilled buprenorphine-naloxone 8-2 mg (Suboxone) 1 film sublingual BID 60 ea 0RF Coding Level of Care Code Est Pt Level 4 (92092) Diagnoses Opioid use disorder, severe, in early remission F11.21
[2024-01-04 13:35] VITALS: BP 110/74; PULSE 84; O2SAT 98
== END 2024-01-04 14:01 | disposition home or self-care (01) ==
PROVIDERS: Visit Provider Nurse Practitioner Psychiatric/Mental Health
DX: F11.21 Opioid dependence, in remission (principal)
CPT/HCPCS: 99214

== ENCOUNTER → 2024-01-04 13:28 | Outpatient (BNVA) | payer OTHER, SELFPAY | PROVIDERS: Visit Provider Nurse Practitioner Psychiatric/Mental Health | DX: F11.21 Opioid dependence, in remission (principal); F14.20 Cocaine dependence, uncomplicated; Z72.0 Tobacco use; Z51.81 Encounter for therapeutic drug level monitoring; Z79.899 Other long term (current) drug therapy | CPT/HCPCS: 99212 ==

== ENCOUNTER 2024-01-25 15:02 | Outpatient (AMB) | payer OTHER, SELFPAY ==
[2024-01-25 15:07] VITALS: BP 120/70; PULSE 91; RESP 16; O2SAT 93
--- NOTE | 2024-01-25 15:07 | A.OFFVISCC_ITS ---
Intake Vital Signs 01/25/24 15:07 BP 120/70 Blood Pressure Location Lt brachial Position Sitting Respiration 16 Pulse 91 Pulse Oximetry (%) 93 Oxygen Delivery Method Room Air Intake Visit Reasons: mat visit Allergies No Known Allergies [No Known Allergies*] Allergy (Verified 12/21/23 13:42) HPI mat visit HPI Details Patient presents for follow up Reports positive few weeks--will be seeing his daughter today, taking her to a circus class. Mood improved--weather, being outside and working identified as contributing to improvement Completed grief groups. Still engaged in therapy. 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 Cocaine use disorder Tobacco use disorder Opioid use disorder Social History Household Members: None Household Members Other:: Fiance Alcohol intake: current Alcohol intake frequency: does not drink Patient Tobacco Use Status: Current everyday Tobacco user Tobacco use type: Cigarette Cigarette Packs Per Day: 0.5 Cigarettes Per Day: 10 Years Smoked: 20 Substance Use Type: Crack/Cocaine and Heroin Review of Systems Const Reports as per HPI and Reports no additional complaints Physical Exam Vital Signs: Last Vital Signs Pulse 91 01/25/24 15:07 Resp 16 01/25/24 15:07 BP 120/70 01/25/24 15:07 Pulse Ox 93 01/25/24 15:07 Oxygen Delivery Method Room Air 01/25/24 15:07 Const General: cooperative and no acute distress Resp Effort & Inspection: normal respiratory effort Psych Appearance: grossly normal Mental Status: mental status grossly normal Speech and movement: Normal speech and movement present Attitude: cooperative and Avoids eye contact (attititude/behavior) Assessment & Plan Assessment & Plan (1) Opioid use disorder, severe, in early remission: Code(s): F11.21 - Opioid dependence, in remission Plan: * continue suboxone at current dose * follow up 2 weeks Coding Level of Care Code Est Pt Level 3 (15733) Diagnoses Opioid use disorder, severe, in early remission F11.21
== END 2024-01-25 16:01 | disposition home or self-care (01) ==
PROVIDERS: Visit Provider Nurse Practitioner Psychiatric/Mental Health
DX: F11.21 Opioid dependence, in remission (principal)
CPT/HCPCS: 99213

== ENCOUNTER → 2024-01-25 15:02 | Outpatient (BNVA) | payer OTHER, SELFPAY | PROVIDERS: Visit Provider Nurse Practitioner Psychiatric/Mental Health | DX: Z51.81 Encounter for therapeutic drug level monitoring (principal); F11.21 Opioid dependence, in remission | CPT/HCPCS: 99212 ==

== ENCOUNTER 2024-02-22 13:41 | Outpatient (AMB) | payer OTHER, SELFPAY ==
[2024-02-22 13:46] VITALS: BP 144/90; PULSE 89; O2SAT 96
--- NOTE | 2024-02-22 13:46 | A.OFFVISCC_ITS ---
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 Seeing daughter more frequently BP high today --anxious about daughters cat who got loose PFSH Medical History (Updated 01/04/24 @ 22:01 by Caprice Faustin CNP) Bipolar 1 disorder, depressed, moderate Menieres disease History of arm fracture Other shelter (current) drug therapy Cocaine use disorder Tobacco use disorder Opioid use disorder Social History Household Members: None Household Members Other:: Fiance Alcohol intake: current Alcohol intake frequency: does not drink Patient Tobacco Use Status: Current everyday Tobacco user Tobacco use type: Cigarette Cigarette Packs Per Day: 0.5 Cigarettes Per Day: 10 Years Smoked: 20 Substance Use Type: Crack/Cocaine and Heroin Review of Systems Const Reports as per HPI Physical Exam Vital Signs: Last Vital Signs Pulse 89 02/22/24 13:46 BP 144/90 H 02/22/24 13:46 Pulse Ox 96 02/22/24 13:46 Oxygen Delivery Method Room Air 02/22/24 13:46 Const General: cooperative and no acute distress Resp Effort & Inspection: normal respiratory effort Psych Appearance: grossly normal Mental Status: mental status grossly normal Speech and movement: Normal speech and movement present Attitude: cooperative and Avoids eye contact (attititude/behavior) Assessment & Plan Assessment & Plan (1) Opioid use disorder, severe, in early remission: Code(s): F11.21 - Opioid dependence, in remission Category: Medical Plan: * continue suboxone at current dose * follow up 3 weeks
== END 2024-02-22 13:57 | disposition home or self-care (01) ==
PROVIDERS: Visit Provider Nurse Practitioner Psychiatric/Mental Health
DX: F11.21 Opioid dependence, in remission (principal)
CPT/HCPCS: 99213

== ENCOUNTER → 2024-02-22 13:41 | Outpatient (BNVA) | payer OTHER, SELFPAY | PROVIDERS: Visit Provider Nurse Practitioner Psychiatric/Mental Health | DX: Z51.81 Encounter for therapeutic drug level monitoring (principal); F11.21 Opioid dependence, in remission | CPT/HCPCS: 99212 ==

== ENCOUNTER 2024-06-06 13:53 | Outpatient (AMB) | payer OTHER, SELFPAY ==
--- NOTE | 2024-06-06 14:03 | MHC.AM.SUB ---
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 Cocaine use disorder Tobacco use disorder Opioid use disorder Social History Household Members: None Household Members Other:: Fiance Alcohol intake: current Alcohol intake frequency: does not drink Patient Tobacco Use Status: Current everyday Tobacco user Tobacco use type: Cigarette Cigarette Packs Per Day: 0.5 Cigarettes Per Day: 10 Years Smoked: 20 Substance Use Type: Crack/Cocaine and Heroin Review of Systems Const Reports as per HPI Physical Exam Const General: cooperative and no acute distress Psych Appearance: grossly normal Mental Status: mental status grossly normal Speech and movement: Normal speech and movement present Attitude: cooperative and Avoids eye contact (attititude/behavior) Assessment & Plan Assessment & Plan (1) Opioid use disorder, severe, in early remission: Code(s): F11.21 - Opioid dependence, in remission Category: Medical Plan: continue suboxone at current dose follow up 3 weeks Medications: Refilled buprenorphine-naloxone 8-2 mg (Suboxone) 1 film sublingual BID 60 ea 0RF
== END 2024-06-06 14:11 | disposition home or self-care (01) ==
PROVIDERS: Visit Provider Nurse Practitioner Psychiatric/Mental Health
DX: F11.21 Opioid dependence, in remission (principal)
CPT/HCPCS: 99213

== ENCOUNTER → 2024-06-06 13:53 | Outpatient (BNVA) | payer OTHER, SELFPAY | PROVIDERS: Visit Provider Nurse Practitioner Psychiatric/Mental Health | DX: F11.21 Opioid dependence, in remission (principal); Z51.81 Encounter for therapeutic drug level monitoring | CPT/HCPCS: 99212 ==

== ENCOUNTER 2024-06-20 14:32 | Outpatient (AMB) | payer OTHER, SELFPAY ==
--- NOTE | 2024-06-20 14:46 | MHC.AM.SUB ---
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 Cocaine use disorder Tobacco use disorder Opioid use disorder Social History Household Members: None Household Members Other:: Fiance Alcohol intake: current Alcohol intake frequency: does not drink Patient Tobacco Use Status: Current everyday Tobacco user Tobacco use type: Cigarette Cigarette Packs Per Day: 0.5 Cigarettes Per Day: 10 Years Smoked: 20 Substance Use Type: Crack/Cocaine and Heroin Review of Systems Const Reports as per HPI and Reports no additional complaints Physical Exam Const General: cooperative and no acute distress Psych Appearance: grossly normal Mental Status: mental status grossly normal Speech and movement: Normal speech and movement present Attitude: cooperative and Avoids eye contact (attititude/behavior) Assessment & Plan Assessment & Plan (1) Opioid use disorder, severe, in early remission: Code(s): F11.21 - Opioid dependence, in remission Category: Medical Plan: continue suboxone at current dose follow up 2 weeks Orders: Orders AMB 14 Panel Urine Drug Screen 06/20/24 Z51.81 - Encounter for therapeutic drug level monitoring
== END 2024-06-20 14:53 | disposition home or self-care (01) ==
PROVIDERS: Visit Provider Nurse Practitioner Psychiatric/Mental Health
DX: F11.21 Opioid dependence, in remission (principal)
CPT/HCPCS: 99213

== ENCOUNTER → 2024-06-20 14:32 | Outpatient (BNVA) | payer OTHER, SELFPAY | PROVIDERS: Visit Provider Nurse Practitioner Psychiatric/Mental Health | DX: Z51.81 Encounter for therapeutic drug level monitoring (principal); F11.21 Opioid dependence, in remission | CPT/HCPCS: 99212 ==

== ENCOUNTER → 2024-06-21 09:39 | Outpatient (BNV) | payer OTHER, SELFPAY | PROVIDERS: Visit Provider Nurse Practitioner Psychiatric/Mental Health | DX: Z51.81 Encounter for therapeutic drug level monitoring (principal) | CPT/HCPCS: 80307 ==

== ENCOUNTER 2024-08-01 13:01 | Outpatient (AMB) | payer OTHER, SELFPAY ==
--- NOTE | 2024-08-01 13:09 | MHC.AM.SUB ---
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 Cocaine use disorder Tobacco use disorder Opioid use disorder Social History Household Members: None Household Members Other:: Fiance Alcohol intake: current Alcohol intake frequency: does not drink Patient Tobacco Use Status: Current everyday Tobacco user Tobacco use type: Cigarette Cigarette Packs Per Day: 0.5 Cigarettes Per Day: 10 Years Smoked: 20 Substance Use Type: Crack/Cocaine and Heroin Review of Systems Const Reports as per HPI and Reports no additional complaints Physical Exam Const General: cooperative and no acute distress Psych Appearance: grossly normal Mental Status: mental status grossly normal Speech and movement: Normal speech and movement present Attitude: cooperative and Avoids eye contact (attititude/behavior) Assessment & Plan Assessment & Plan (1) Opioid use disorder, severe, in early remission: Code(s): F11.21 - Opioid dependence, in remission Category: Medical Plan: continue suboxone at current dose follow up 2 weeks Medications: Refilled buprenorphine-naloxone 8-2 mg (Suboxone) 1 film sublingual BID 60 ea 0RF
== END 2024-08-01 13:41 | disposition home or self-care (01) ==
PROVIDERS: PCP Internal Medicine; Visit Provider Nurse Practitioner Psychiatric/Mental Health
DX: F11.21 Opioid dependence, in remission (principal)
CPT/HCPCS: 99213

== ENCOUNTER → 2024-08-01 13:01 | Outpatient (BNVA) | payer OTHER, SELFPAY | PROVIDERS: Visit Provider Nurse Practitioner Psychiatric/Mental Health | DX: F11.21 Opioid dependence, in remission (principal) | CPT/HCPCS: 99212 ==

== ENCOUNTER 2024-08-15 13:23 | Outpatient (AMB) | payer OTHER, SELFPAY ==
--- NOTE | 2024-08-15 13:55 | MHC.AM.SUB ---
Intake Visit Reasons: MAT Office Allergies No Known Allergies [No Known Allergies*] Allergy (Verified 12/21/23 13:42) HPI HPI MAT Office: Details: Patient presents for follow up Currently prescribed Suboxone 8mg BID Still engaged with therapy Denies any issues related to recovery Daughter is scheduled for back surgery next month Hopeful he will be able to support her through her recovery Bright affect, future oriented COUNT INCLUDES THE [facility] Medical History (Updated 01/04/24 @ 22:01 by Caprice Faustin CNP) Bipolar 1 disorder, depressed, moderate Menieres disease History of arm fracture 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 Cocaine use disorder Tobacco use disorder Opioid use disorder Social History Household Members: None Household Members Other:: Fiance Alcohol intake: current Alcohol intake frequency: does not drink Patient Tobacco Use Status: Current everyday Tobacco user Tobacco use type: Cigarette Cigarette Packs Per Day: 0.5 Cigarettes Per Day: 10 Years Smoked: 20 Substance Use Type: Crack/Cocaine and Heroin Review of Systems Const Reports as per HPI and Reports no additional complaints Physical Exam Const General: cooperative, healthy appearing, comfortable and well groomed Nutritional Appearance: average body habitus Psych Appearance: well kempt Speech and movement: Normal speech and movement present Affect: normal affect Attitude: cooperative Assessment & Plan Assessment & Plan (1) Opioid use disorder, severe, in early remission: Code(s): F11.21 - Opioid dependence, in remission Category: Medical Plan: follow up 2 weeks refill not needed at this time
== END 2024-08-15 14:09 | disposition home or self-care (01) ==
LOC: HO.HCC 13:23
PROVIDERS: PCP Internal Medicine; Visit Provider Nurse Practitioner Psychiatric/Mental Health
DX: Z51.81 Encounter for therapeutic drug level monitoring (principal); F11.21 Opioid dependence, in remission
CPT/HCPCS: 99213

== ENCOUNTER → 2024-08-15 13:23 | Outpatient (BNVA) | payer OTHER, SELFPAY | PROVIDERS: PCP Internal Medicine; Visit Provider Nurse Practitioner Psychiatric/Mental Health | DX: F11.21 Opioid dependence, in remission (principal); Z51.81 Encounter for therapeutic drug level monitoring | CPT/HCPCS: 80307; 99212 ==

== ENCOUNTER → 2024-08-29 14:34 | Outpatient (BNVA) | payer OTHER, SELFPAY | PROVIDERS: PCP Internal Medicine; Visit Provider Nurse Practitioner Psychiatric/Mental Health ==

== ENCOUNTER → 2024-09-03 11:33 | Outpatient (BNV) | payer OTHER, SELFPAY | PROVIDERS: PCP Internal Medicine; Visit Provider Nurse Practitioner Psychiatric/Mental Health | DX: Z51.81 Encounter for therapeutic drug level monitoring (principal) | CPT/HCPCS: 80307 ==

== ENCOUNTER 2024-09-12 14:40 | Outpatient (AMB) | payer OTHER, SELFPAY ==
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
== END 2024-09-12 15:34 | disposition home or self-care (01) ==
PROVIDERS: PCP Internal Medicine; Visit Provider Nurse Practitioner Psychiatric/Mental Health
DX: F11.21 Opioid dependence, in remission (principal); F33.1 Major depressive disorder, recurrent, moderate
CPT/HCPCS: 99214

== ENCOUNTER → 2024-09-12 14:40 | Outpatient (BNVA) | payer OTHER, SELFPAY | PROVIDERS: PCP Internal Medicine; Visit Provider Nurse Practitioner Psychiatric/Mental Health | DX: F11.21 Opioid dependence, in remission (principal); F33.1 Major depressive disorder, recurrent, moderate | CPT/HCPCS: 99212 ==

== ENCOUNTER 2024-09-26 14:11 | Outpatient (AMB) | payer OTHER, SELFPAY ==
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
== END 2024-09-26 14:32 | disposition home or self-care (01) ==
PROVIDERS: PCP Internal Medicine; Visit Provider Nurse Practitioner Psychiatric/Mental Health
DX: F11.21 Opioid dependence, in remission (principal); F33.1 Major depressive disorder, recurrent, moderate
CPT/HCPCS: 99214

== ENCOUNTER → 2024-09-26 14:11 | Outpatient (BNVA) | payer OTHER, SELFPAY | PROVIDERS: PCP Internal Medicine; Visit Provider Nurse Practitioner Psychiatric/Mental Health | DX: F11.21 Opioid dependence, in remission (principal); F33.1 Major depressive disorder, recurrent, moderate; Z51.81 Encounter for therapeutic drug level monitoring; Z79.899 Other long term (current) drug therapy | CPT/HCPCS: 99212 ==

== ENCOUNTER 2024-10-24 13:39 | Outpatient (AMB) | payer OTHER, SELFPAY ==
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
== END 2024-10-24 14:09 | disposition home or self-care (01) ==
PROVIDERS: PCP Internal Medicine; Visit Provider Nurse Practitioner Psychiatric/Mental Health
DX: F11.21 Opioid dependence, in remission (principal)
CPT/HCPCS: 99213

== ENCOUNTER → 2024-10-24 13:39 | Outpatient (BNVA) | payer OTHER, SELFPAY | PROVIDERS: PCP Internal Medicine; Visit Provider Nurse Practitioner Psychiatric/Mental Health | DX: F11.21 Opioid dependence, in remission (principal) | CPT/HCPCS: 99212 ==

== ENCOUNTER → 2024-11-21 14:48 | Outpatient (BNVA) | payer OTHER, SELFPAY | PROVIDERS: PCP Internal Medicine; Visit Provider Nurse Practitioner Psychiatric/Mental Health | DX: F11.21 Opioid dependence, in remission (principal) | CPT/HCPCS: 99212 ==

== ENCOUNTER 2025-02-06 16:07 | Outpatient (AMB) | payer OTHER, SELFPAY ==
[2025-02-06 16:20] VITALS: BP 118/78; PULSE 86; O2SAT 96; BMI 27.4
--- NOTE | 2025-02-06 16:20 | MHC.OFFVIS ---
Vital Signs 02/06/25 16:20 Height 5 ft 6 in Weight 170 lb BMI 27.4 BP 118/78 Pulse 86 Pulse Oximetry (%) 96 Intake Visit Reasons: MAT Operations Manager Station Required: No Allergies No Known Allergies [No Known Allergies*] Allergy (Verified 02/06/25 16:21) HPI HPI MAT: Details: He is doing well His daughter Michaela is looking into [employer] and doing nutrition internship. 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) drug therapy Cocaine use disorder Tobacco use disorder Opioid use disorder Social History Household Members: None Household Members Other:: Fiance Alcohol intake: current Alcohol intake frequency: does not drink Patient Tobacco Use Status: Current everyday Tobacco user Tobacco use type: Cigarette Cigarette Packs Per Day: 0.5 Cigarettes Per Day: 10 Years Smoked: 20 Substance Use Type: Crack/Cocaine and Heroin Review of Systems Const All systems reviewed & are unremarkable except as noted in HPI and below Physical Exam Vital Signs: Last Vital Signs Pulse 86 02/06/25 16:20 BP 118/78 02/06/25 16:20 Pulse Ox 96 02/06/25 16:20 BMI result Body Mass Index 27.4 Const General: cooperative Results AMB 14 Panel Urine Drug Screen Urine Marijuana (THC) Positive Last Edit by Gila Peña CMA on 02/06/25 16:26 Urine Cocaine Negative Last Edit by Gila Peña CMA on 02/06/25 16:26 Urine Morphine Negative Last Edit by Gila Peña CMA on 02/06/25 16:26 Urine Methamphetamine Negative Last Edit by Gila Peña CMA on 02/06/25 16:26 Urine Amphetamine Negative Last Edit by Gila Peña CMA on 02/06/25 16:26 Urine Benzodiazepine Negative Last Edit by Gila Peañ CMA on 02/06/25 16:26 Urine Barbiturates Negative Last Edit by Gila Peña CMA on 02/06/25 16:26 Urine Methadone Negative Last Edit by Gila Peña CMA on 02/06/25 16:26 Urine Buprenorphine Positive Last Edit by Gila Peña CMA on 02/06/25 16:26 Urine Tricyclic Antidepressant Positive Last Edit by Gila Peña CMA on 02/06/25 16:26 Urine MDMA Negative Last Edit by Gila Peña CMA on 02/06/25 16:26 Urine Oxycodone Negative Last Edit by Gila Peña CMA on 02/06/25 16:26 Urine Phencyclidine Negative Last Edit by Gila Peña CMA on 02/06/25 16:26 Urine Propoxyphene Negative Last Edit by Gila Peña CMA on 02/06/25 16:26 Results Reviewed Results Reviewed: Laboratory Last Values POC Urine Buprenorphine Positive 02/06/25 16:22 POC Urine Morphine Negative 02/06/25 16:22 POC Urine Oxycodone Negative 02/06/25 16:22 POC Urine Methadone Negative 02/06/25 16:22 POC Urine Propoxyphene Negative 02/06/25 16:22 POC Urine Barbiturates Negative 02/06/25 16:22 POC U Tricyclic Antidpr Positive 02/06/25 16:22 POC Urine PCP Negative 02/06/25 16:22 POC Ur Amphetamines Negative 02/06/25 16:22 POC Ur Methamphetamine Negative 02/06/25 16:22 POC Urine MDMA Negative 02/06/25 16:22 POC Ur Benzodiazepine Negative 02/06/25 16:22 POC Urine Cocaine Negative 02/06/25 16:22 POC Ur Marijuana (THC) Positive 02/06/25 16:22 Assessment & Plan Assessment & Plan (1) Opioid use disorder, severe, in early remission: Comment: He is doing well Code(s): F11.21 - Opioid dependence, in remission Category: Medical Plan: See as scheduled. Orders: Orders AMB 14 Panel Urine Drug Screen Today Z51.81 - Encounter for therapeutic drug level monitoring Medications: New buprenorphine-naloxone 8-2 mg (Suboxone) place 1 film on inside of (each) cheek 2 film sublingual DAILY 30 days 60 ea 1RF Coding Level of Care Code Est Pt Level 3 (67940) Diagnoses Opioid use disorder, severe, in early remission F11.21
--- OUTSIDE RECORDS SUMMARY | 2025-02-06 18:31 | XMS_ITS | Encounter Summary ---
Author Organization [facility] Address [address] [place] [address] Care Team Providers Care Scrap Worker Name Role Phone Tomas Alarcon MD Primary Care Provider [phone] Reason for Visit * Reason Onset Date Comments TEST RESULTS 08/28/2019 Encounter Details Date Type Department Care Team Description 08/28/2019 Telephone Adult Medicine [facility] [address] [place] [address] [id number] Tomas Alarcon MD [address] [place] [address] [id number] TEST RESULTS Social History Tobacco Use Types Packs/Day Years Used Date Smoking Tobacco: Former Cigarettes 1.5 Q uit: 12/25/2014 Smokeless Tobacco: Never Comments:e cig Alcohol Use Standard Drinks/Week Comments No 0 (1 standard drink = 0.6 oz pur e alcohol) quit Sex Assigned at Date Recorded Not on file documented as of this encounter Miscellaneous Notes * Telephone Encounter - Licha Miguel - 08/28/2019 3:44 PM EST Inform patient: ANY URGENT OR ABNORMAL RESULTS WIILL RESULT IN A CALL BACK TO THE PATIENT FLORENTIN. Type of test: :xray of foot and ankle Date test was performed: today 08/28/2019 Where was the test performed: [facility] Who ordered this test?: Mariah Hoffman Is the doctor here today?: YES Can the message wait until the doctor returns?: YES IF PATIENT'S PCP IS NOT IN INSTRUCT PATIENT THAT THEY WILL RECEIVE A CALL BACK WHEN THE PCP IS IN THE OFFICE NEXT. documented in this encounter Plan of Treatment Not on file documented as of this encounter Visit Diagnoses Not on filedocumented in this encounter Care Teams Scrap Worker Relationship Specialty Start Date End Date Tomas Alarcon MD [address] [place] [address] PCP - General Internal Medicine 06/18/15 documented as of this encounter
--- OUTSIDE RECORDS SUMMARY | 2025-02-06 18:31 | XMS_ITS | Clinical Summary ---
Author Organization [facility] Address [address] [place] [address] Care Team Providers Care Certified Addiction Counselor Name Role Phone Tomas Alarcon MD Primary Care Provider [phone] Allergies No known active allergies Medications Medication Sig Dispensed Refills Start Date End Date Status ALBUTEROL SULFATE (PROAIR HFA) 108 (90 BASE) MCG/ACT Aero Soln Take 2 Puffs by mouth every 6 hours as needed for Cough or Wheezing. 8.5 g 5 05/24/2019 Active Buprenorphine HCl-Naloxone HCl (SUBOXONE) 12-[address] under the tongue. 30 Each 0 05/24/2019 Active clonazepam (KLONOPIN) 0.5 MG tablet Take 1 Tab by mouth 2 times daily as needed for Anxiety. 0 05/24/2019 Active amphetamine-dextroamph etamine (ADDERALL, 20MG,) 20 MG tablet Take 1 Tab by mouth daily. 28 Tab 0 05/24/2019 Active Active Problems Problem Noted Date Cocaine use 05/17/2023 Heroin overdose 08/19/2020 Overview: [facility] 07/31/2019; treated with narcan twice, left AMA Atrial fibrillation with RVR 08/19/2020 Overview: [facility] 07/31/2019; left AMA Hyperlipidemia 08/14/2020 ADHD 05/24/2019 Anxiety 05/24/2019 Bipolar 2 disorder 05/24/2019 Asthma 08/27/2015 Family History Medical History Relation Name Comments Diabetes Father Diabetes Maternal Grandfather CA Breast Mother recurrent in 60 s; COPD Diabetes Paternal Grandmother Relation Name Status Comments Father Maternal Grandfather Maternal Grandmother Mother Alive Paternal Grandfather Paternal Grandmother Sister Alive Social History Tobacco Use Types Packs/Day Years Used Date Smoking Tobacco: Former Cigarettes 1.5 Q uit: 12/25/2014 Smokeless Tobacco: Never Comments:e cig Alcohol Use Standard Drinks/Week Comments No 0 (1 standard drink = 0.6 oz pur e alcohol) quit Sex Assigned at Date Recorded Not on file Last Filed Vital Signs Vital Sign Reading Time Taken Comments Blood Pressure 98/68 08/04/2020 3:48 PM EDT Pulse 68 08/04/2020 3:48 PM EDT Temperature 36.9 ??C (98.5 ??F) 08/04/2020 3:48 PM ED T Respiratory Rate 16 08/04/2020 3:48 PM EDT Oxygen Saturation 97% 08/10/2017 8:56 AM EDT Inhaled Oxygen Concentration - - Weight 59.4 kg (131 lb) 08/04/2020 3:48 PM EDT Height 165.1 cm (5' 5 ) 08/04/2020 3:48 PM EDT Body Mass Index 21.8 08/04/2020 3:48 PM EDT Plan of Treatment Health Maintenance Due Date Last Done Comments Covid-19 Vaccine (#1) 01/03/1976 DTAP/TDAP/TD (1 - Tdap) 1994 PNEUMOCOCCAL VACCINE FOR HIG H RISK PATIENTS (#1) 1994 BASELINE HEALTH EXAM 40-64 05/24/2021 05/24/2019, DEPRESSION SCREENING/FOLLOWUP 10/17/2024 SOCIAL NEEDS SCREENING 10/17/2024 INFLUENZA (Season Ended) 2025 05/20/2016 CHOLESTEROL SCREENING 08/14/2025 08/14/2020 Care Teams Certified Addiction Counselor Relationship Specialty Start Date End Date Tomas Alarcon MD [address] [place] [address] PCP - General Internal Medicine 06/18/15
--- OUTSIDE RECORDS SUMMARY | 2025-02-06 18:31 | XMS_ITS | Encounter Summary ---
Author Organization [facility] Address [address] [place] [address] Care Team Providers Care Manager Utilization Review Name Role Phone Tomas Alarcon MD Primary Care Provider [phone] Encounter Details Date Type Department Care Team Description 06/23/2021 Desizing Pad Operator Report Medical Records [address] [place] [id number] Farrah Waldron MD Social History Tobacco Use Types Packs/Day Years Used Date Smoking Tobacco: Former Cigarettes 1.5 Q uit: 12/25/2014 Smokeless Tobacco: Never Comments:e cig Alcohol Use Standard Drinks/Week Comments No 0 (1 standard drink = 0.6 oz pur e alcohol) quit Sex Assigned at Date Recorded Not on file documented as of this encounter Plan of Treatment Not on file documented as of this encounter Visit Diagnoses Not on filedocumented in this encounter Care Teams Manager Utilization Review Relationship Specialty Start Date End Date Tomas Alarcon MD [address] [place] [address] PCP - General Internal Medicine 06/18/15 documented as of this encounter
--- OUTSIDE RECORDS SUMMARY | 2025-02-06 18:31 | XMS_ITS | Encounter Summary ---
Author Organization [facility] Address [address] [place] [address] Care Team Providers Care Tour Driver Name Role Phone Tomas Alarcon MD Primary Care Provider [phone] Encounter Details Date Type Department Care Team Description 07/01/2017 Release of Information Medical Records [address] [place] [id number] Abstract, Provider Social History Tobacco Use Types Packs/Day Years Used Date Smoking Tobacco: Former Cigarettes 1.5 Q uit: 12/25/2014 Smokeless Tobacco: Current Comments:e cig Alcohol Use Standard Drinks/Week Comments No 0 (1 standard drink = 0.6 oz pur e alcohol) quit Sex Assigned at Date Recorded Not on file documented as of this encounter Plan of Treatment Not on file documented as of this encounter Visit Diagnoses Not on filedocumented in this encounter Care Teams Tour Driver Relationship Specialty Start Date End Date Tomas Alarcon MD [address] [place] [address] PCP - General Internal Medicine 06/18/15 documented as of this encounter
--- OUTSIDE RECORDS SUMMARY | 2025-02-06 18:31 | XMS_ITS | Clinical Summary ---
Author Organization [facility] Address [address] [facility] [address] [facility] [address] [place] [address] Care Team Providers Care Meteorological Engineer Name Role Phone Unavailable Primary Care Provider Unavailabl e Immunizations Name Administration Dates Next Due Moderna Covid-19 Vaccine 12+ 12/10/2022 Social History Tobacco Use Types Packs/Day Years Used Date Smoking Tobacco: Never Assessed Sex and Gender Information Value Date Recorded Sex Assigned at Male 12/10/2022 2:23 PM EST Legal Sex Male 2:19 PM EST Gender Identity Male 12/10/2022 2:23 PM EST Sexual Orientation Choose not to disclose 2022 2:23 PM EST Plan of Treatment Health Maintenance Due Date Last Done Comments CT Colonography 1975 Colonoscopy 1975 Colorectal Cancer Screening 1975 Depression Screening 1975 FIT DNA/Cologuard 1975 FIT 1975 FOBT 1975 HIV Screening 1975 Lipid Panel 1975 SDOH Screening 1975 Sigmoidoscopy 1975 Alcohol/Substance Use Screening 1987 Tobacco Screening 1987 Family Planning (PISQ) 1990 Hepatitis C Screening 1993 DTaP/Tdap/Td Vaccines (1 - Tdap) 1994 Hepatitis B Vaccines (1 of 3 - 19+ 3-dose series) 1994 Pneumococcal Vaccine: Pediat rics (0 to 5 Years) and At-Risk Patients (6 to 49) Years) (1 of 2 - PCV) 1994 COVID-19 Vaccine (2 - 2023-2 5 season) 2024 12/10/2022 Influenza Vaccine (#1) 2024 Zoster Vaccines (1 of 2) 2025 RSV Patients and Pa tients Aged 60 years or older (1 - 1-dose 75+ series) 2050 HIB Vaccines Aged Out No longer eligi ble based on patient's age to complete this topic HPV Vaccines Aged Out No longer eligi ble based on patient's age to complete this topic Hepatitis A Vaccines Aged Out No long er eligible based on patient's age to complete this topic IPV Vaccines Aged Out No longer eligi ble based on patient's age to complete this topic Meningococcal Vaccine Aged Out No prince man eligible based on patient's age to complete this topic RSV under 20 months Aged Out No longe r eligible based on patient's age to complete this topic Rotavirus Vaccines Aged Out No longer eligible based on patient's age to complete this topic Insurance [facility]
--- OUTSIDE RECORDS SUMMARY | 2025-02-06 18:31 | XMS_ITS | Encounter Summary ---
Author Organization [facility] Address [address] [place] [address] Care Team Providers Care Electronic Induction Hardener Name Role Phone Tomas Alarcon MD Primary Care Provider [phone] Encounter Details Date Type Department Care Team Description 05/27/2023 Director Adult Report Medical Records [address] [place] [phone] [facility] Social History Tobacco Use Types Packs/Day Years [...] on filedocumented in this encounter Care Teams Electronic Induction Hardener Relationship Specialty Start Date End Date Tomas Alarcon MD [address] [place] [address] PCP - General Internal Medicine 06/18/15 documented as of this encounter
--- OUTSIDE RECORDS SUMMARY | 2025-02-06 18:31 | XMS_ITS | Encounter Summary ---
Author Organization [facility] Address [address] [place] [address] Care Team Providers Care Quality Engineer Name Role Phone Tomas Alarcon MD Primary Care Provider [phone] Encounter Details Date Type Department Care Team Description 10/27/2016 Release of Information Medical Records [address] [place] [id number] Abstract, Provider Social History Tobacco Use Types [...] on filedocumented in this encounter Care Teams Quality Engineer Relationship Specialty Start Date End Date Tomas Alarcon MD [address] [place] [address] PCP - General Internal Medicine 06/18/15 documented as of this encounter
--- OUTSIDE RECORDS SUMMARY | 2025-02-06 18:31 | XMS_ITS | Encounter Summary ---
Author Organization [facility] Address [address] [place] [address] Care Team Providers Care Mud Analysis Well Logging Operator Name Role Phone Tomas Alarcon MD Primary Care Provider [phone] Encounter Details Date Type Department Care Team Description 08/29/2015 Release of Information Medical Records [address] [place] [id number] Abstract, Provider Social History Tobacco Use Types [...] on filedocumented in this encounter Care Teams Mud Analysis Well Logging Operator Relationship Specialty Start Date End Date Tomas Alarcon MD [address] [place] [address] PCP - General Internal Medicine 06/18/15 documented as of this encounter
== END 2025-02-06 16:54 | disposition home or self-care (01) ==
LOC: HO.HCC 16:08
PROVIDERS: PCP Internal Medicine; Visit Provider Internal Medicine
DX: Z51.81 Encounter for therapeutic drug level monitoring (principal); F11.21 Opioid dependence, in remission
CPT/HCPCS: 99213

== ENCOUNTER → 2025-02-06 16:07 | Outpatient (BNVA) | payer OTHER, SELFPAY | PROVIDERS: PCP Internal Medicine; Visit Provider Internal Medicine | DX: F11.21 Opioid dependence, in remission (principal); Z51.81 Encounter for therapeutic drug level monitoring | CPT/HCPCS: 80307; 99212 ==

== ENCOUNTER 2025-04-10 15:21 | Outpatient (AMB) | payer OTHER, SELFPAY ==
[2025-04-10 15:34] VITALS: PULSE 128; O2SAT 99
--- NOTE | 2025-04-10 15:34 | MHC.OFFVIS ---
Vital Signs 04/10/25 15:34 Height 5 ft 6 in Pulse 128 H Pulse Source Pulse Oximeter Pulse Oximetry (%) 99 Oxygen Delivery Method Room Air Intake Visit Reasons: MAT Allergies No Known Allergies (No Known Allergies*) Allergy (Verified 04/10/25 15:37) HPI HPI MAT: Details: He has been doing well. His daughter Gerson is looking at [employer] [facility] Medical History Bipolar 1 disorder, depressed, moderate Menieres disease History of arm fracture Other fci (current) drug therapy Cocaine use disorder Tobacco use disorder Opioid use disorder Social History Household Members: None Household Members Other:: Fiance Alcohol intake: current Alcohol intake frequency: does not drink Patient Tobacco Use Status: Current everyday Tobacco user Tobacco use type: Cigarette Cigarette Packs Per Day: 0.5 Cigarettes Per Day: 10 Years Smoked: 20 Substance Use Type: Crack/Cocaine and Heroin Review of Systems Const All systems reviewed & are unremarkable except as noted in HPI and below Physical Exam Vital Signs: Last Vital Signs Pulse 128 H 04/10/25 15:34 Pulse Ox 99 04/10/25 15:34 Oxygen Delivery Method Room Air 04/10/25 15:34 Const General: cooperative Assessment & Plan Assessment & Plan (1) MDD (major depressive disorder), recurrent episode, moderate: Comment: He has no complaints and no SI or HI Code(s): F33.1 - Major depressive disorder, recurrent, moderate Category: Medical Plan: na (2) Opioid use disorder, severe, in early remission: Comment: He is doing well. Continue current script. See as scheduled. Code(s): F11.21 - Opioid dependence, in remission Category: Medical Plan na Medications: New buprenorphine-naloxone 8-2 mg (Suboxone) 1 film sublingual BID 60 ea 1RF 30 days mirtazapine (Remeron) 30 mg PO BEDTIME 30 tabs 5RF 30 days Coding Level of Care Code Est Pt Level 3 (24583) Diagnoses MDD (major depressive disorder), recurrent episode, moderate F33.1 Opioid use disorder, severe, in early remission F11.21
--- OUTSIDE RECORDS SUMMARY | 2025-04-10 18:10 | XMS_ITS | Clinical Summary ---
Author Organization [employer] Address [address] [place] [address] Care Team Providers Care Toe Puncher Name Role Phone Unavailable Primary Care Provider Unavailabl e Immunizations Immunization Administration Dates Next Due Moderna Covid-19 Vaccine [...] Panel 1975 SDOH Screening 1975 Sigmoidoscopy 1975 Disability Screening 1975 Alcohol/Substance Use Screening 1987 Tobacco Screening 1987 Family Planning (PISQ) 1990 Hepatitis C Screening 1993 DTaP/Tdap/Td Vaccines (1 - Tdap) 1994 Hepatitis B Vaccines (1 of 3 - 19+ 3-dose series) 1994 Pneumococcal Vaccine: Pediat rics (0 to 5 Years) and At-Risk Patients (6 to 49) Years (1 of 2 - PCV) 1994 COVID-19 Vaccine (2 - 2023-2 5 season) 2024 12/10/2022 Influenza Vaccine (Season Ended) 2025 Zoster Vaccines (1 of 2) 2025 RSV [...] patient's age to complete this topic Meningococcal B Vaccine Aged Out No l onger eligible based on patient's age to complete this topic Meningococcal Vaccine Aged Out No prince man eligible based on patient's age to complete this topic RSV under 20 months Aged Out No longe r eligible based on patient's age to complete this topic Rotavirus Vaccines Aged Out No longer eligible based on patient's age to complete this topic Insurance [facility]
== END 2025-04-10 15:56 | disposition home or self-care (01) ==
LOC: HO.HCC 15:21
PROVIDERS: PCP Internal Medicine; Visit Provider Internal Medicine
DX: F33.1 Major depressive disorder, recurrent, moderate (principal); F11.21 Opioid dependence, in remission
CPT/HCPCS: 99213

== ENCOUNTER → 2025-04-10 15:21 | Outpatient (BNVA) | payer OTHER, SELFPAY | PROVIDERS: PCP Internal Medicine; Visit Provider Internal Medicine | DX: F33.1 Major depressive disorder, recurrent, moderate (principal); F11.21 Opioid dependence, in remission | CPT/HCPCS: 99212 ==

== ENCOUNTER 2025-05-20 14:04 | Outpatient (AMB) | payer OTHER, SELFPAY ==
--- NOTE | 2025-05-20 14:07 | MHC.OFFVIS ---
Vital Signs 05/20/25 14:08 Height 5 ft 6 in Weight 164 lb BMI 26.5 BP 132/86 Pulse 76 Pulse Oximetry (%) 97 Intake Visit Reasons: MAT Allergies No Known Allergies (No Known Allergies*) Allergy (Verified 05/20/25 14:08) Medication List - Last Reconciled 05/20/25 by BARRY ArceC buprenorphine-naloxone 8-2 mg (Suboxone) 1 film sublingual BID 30 days mirtazapine (Remeron) 30 mg PO BEDTIME 30 days nicotine (polacrilex) 2 mg buccal Q3H PRN HPI Comments Details: A 49-year-old male presents for follow-up visit related to substance use disorder, currently in remission and reports doing well and feeling stable on buprenorphine-naloxone 8-2 mg BID. Denies use of opioids, alcohol, or other substances with the exception of smoking cigarettes and marijuana on a daily basis. Reports following up with [facility] for mental health therapy sessions. [facility] Medical History Bipolar 1 disorder, depressed, moderate Menieres disease History of arm fracture Other exterminator helper (current) drug therapy Cocaine use disorder Tobacco use disorder Opioid use disorder Social History Household Members: None Household Members Other:: Fiance Alcohol intake: current Alcohol intake frequency: does not drink Patient Tobacco Use Status: Current everyday Tobacco user Tobacco use type: Cigarette Cigarette Packs Per Day: 0.5 Cigarettes Per Day: 10 Years Smoked: 20 Substance Use Type: Crack/Cocaine and Heroin Review of Systems Const All systems reviewed & are unremarkable except as noted in HPI and below Physical Exam Vital Signs: Last Vital Signs Pulse 76 05/20/25 14:08 BP 132/86 05/20/25 14:08 Pulse Ox 97 05/20/25 14:08 BMI result Body Mass Index 26.5 Const General: cooperative and well groomed Nutritional Appearance: average body habitus Orientation/consciousness: patient oriented x3 Limitations: no limitations Neuro General: patient oriented x3 Psych Appearance: well kempt Mental Status: mental status grossly normal Speech and movement: Normal speech and movement present Affect: normal affect Attitude: cooperative Thought process: Normal thought process present Thought content: Normal thought content present Insight: Good insight present (Psych) Judgement: Good judgement present (Psych) Assessment & Plan Assessment & Plan (1) Opioid use disorder, severe, in early remission: Comment: He is doing well. Continue current script. See as scheduled. Code(s): F11.21 - Opioid dependence, in remission Category: Medical Plan The plan of care is to continue with buprenorphine-naloxone 8-2mg, twice per day and reduce frequency and quantity of cigarettes and marijuana use. Medications: Refilled buprenorphine-naloxone 8-2 mg (Suboxone) 1 film sublingual BID 60 ea 1RF 30 days Patient Instructions: - Continue with buprenorphine-naloxone as ordered. - Reduce frequency and quantity of cigarette and marijuana use. - Follow up in two months or sooner, if needed. - The patient verbalized understanding and agreed with plan of care. Coding Level of Care Code Est Pt Level 3 (92519) Diagnoses Opioid use disorder, severe, in early remission F11.21
[2025-05-20 14:08] VITALS: BP 132/86; PULSE 76; O2SAT 97; BMI 26.5
--- OUTSIDE RECORDS SUMMARY | 2025-05-20 14:12 | XMS_ITS | Encounter Summary ---
Author Organization [facility] Address [address] [place] [address] Care Team Providers Care Mold Filling Operator Name Role Phone Tomas Alarcon MD Primary Care Provider [phone] Encounter Details Date Type Department Care Team Description 07/01/2017 Release of Information Medical Records [address] [place] [id number] Abstract, Provider Social History Tobacco Use Types [...] on filedocumented in this encounter Care Teams Mold Filling Operator Relationship Specialty Start Date End Date Tomas Alarcon MD [address] [place] [id number] PCP - General Internal Medicine 06/18/15 documented as of this encounter
--- OUTSIDE RECORDS SUMMARY | 2025-05-20 14:12 | XMS_ITS ---
[facility] Name [facility] Organization Unknown Care Team Organization Name Specialty Phone Email Start Date End Da te [facility] 08/24/2022 4
--- OUTSIDE RECORDS SUMMARY | 2025-05-20 14:12 | XMS_ITS | Clinical Summary ---
Author Organization [employer] Address [address] [address] [place] [address] Care Team Providers Care Accounting Practice Manager Name Role Phone Unavailable Primary Care Provider [...] 5 season) 2024 12/10/2022 Influenza Vaccine (#1) 2025 Zoster Vaccines (1 of 2) 2025 [...] patient's age to complete this topic Insurance [facility]
== END 2025-05-20 14:16 | disposition home or self-care (01) ==
LOC: HO.HCC 14:04
PROVIDERS: PCP Internal Medicine; Visit Provider Clinical Nurse Specialist Psychiatric/Mental Health
DX: F11.21 Opioid dependence, in remission (principal)
CPT/HCPCS: 99213

== ENCOUNTER → 2025-05-20 14:04 | Outpatient (BNVA) | payer OTHER, SELFPAY | PROVIDERS: PCP Internal Medicine; Visit Provider Clinical Nurse Specialist Psychiatric/Mental Health | DX: F11.21 Opioid dependence, in remission (principal); F17.210 Nicotine dependence, cigarettes, uncomplicated; F12.90 Cannabis use, unspecified, uncomplicated | CPT/HCPCS: 99212 ==

== ENCOUNTER 2025-07-23 13:06 | Outpatient (AMB) | payer OTHER, SELFPAY ==
[2025-07-23 13:12] VITALS: BP 126/70; PULSE 96; O2SAT 98
--- NOTE | 2025-07-23 13:12 | MHC.OFFVIS ---
Vital Signs 07/23/25 13:12 BP 126/70 Pulse 96 Pulse Oximetry (%) 98 Intake Visit Reasons: MAT Allergies No Known Allergies (No Known Allergies*) Allergy (Verified 07/23/25 13:15) HPI Comments Details: A 50-year-old male presents for a follow-up visit r/t RUBEN in sustained remission with buprenorphine-naloxone 8-2 mg BID. Denies use of opiates, alcohol, and other substances. Reports smoking cigarettes and cannabis on a daily basis. He has reduced cigarettes to 2-3 per day. 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 Cocaine use disorder Tobacco use disorder Opioid use disorder Social History Household Members: None Household Members Other:: Fiance Alcohol intake: current Alcohol intake frequency: does not drink Patient Tobacco Use Status: Current everyday Tobacco user Tobacco use type: Cigarette Cigarette Packs Per Day: 0.5 Cigarettes Per Day: 10 Years Smoked: 20 Substance Use Type: Crack/Cocaine and Heroin Physical Exam Vital Signs: Last Vital Signs Pulse 96 07/23/25 13:12 BP 126/70 07/23/25 13:12 Pulse Ox 98 07/23/25 13:12 Assessment & Plan Assessment & Plan (1) Opioid use disorder, severe, in early remission: Comment: He is doing well. Continue current script. See as scheduled. Code(s): F11.21 - Opioid dependence, in remission Category: Medical Plan The plan of care is to continue with buprenorphine-naloxone 8-2mg BID and reduce frequency/quantity of cannabis and cigarette use. Follow-up in 2 months or sooner if needed. Medications: Refilled buprenorphine-naloxone 8-2 mg (Suboxone) 1 film sublingual BID 60 ea 1RF 30 days Patient Instructions: - Continue with buprenorphine-naloxone as prescribed. - Reduce frequency/quantity of cannabis and cigarette use. - Call with questions, concerns, or to report side effects/new onset of symptoms to [facility]. - The patient verbalized understanding and agreed with plan of care. Coding Level of Care Code Est Pt Level 3 (49011) Diagnoses Opioid use disorder, severe, in early remission F11.21
--- OUTSIDE RECORDS SUMMARY | 2025-07-23 16:04 | XMS_ITS | Clinical Summary ---
Author Organization [employer] Address [address] [facility] [address] [place] [address] Care Team Providers Care Head Waitress Name Role Phone Unavailable Primary Care Provider [...] - 19+ 3-dose series) 1994 Pneumococcal Vaccine: 50+ Ye ars (1 of 2 - PCV) 1994 COVID-19 Vaccine (2 - 2024-2 6 season) 2025 12/10/2022 Influenza Vaccine (#1) 2025 Zoster Vaccines [...] patient's age to complete this topic Insurance [facility]
== END 2025-07-23 13:23 | disposition home or self-care (01) ==
LOC: HO.HCC 13:06
PROVIDERS: PCP Internal Medicine; Visit Provider Clinical Nurse Specialist Psychiatric/Mental Health
DX: F11.21 Opioid dependence, in remission (principal)
CPT/HCPCS: 99213

== ENCOUNTER → 2025-07-23 13:06 | Outpatient (BNVA) | payer OTHER, SELFPAY | PROVIDERS: PCP Internal Medicine; Visit Provider Clinical Nurse Specialist Psychiatric/Mental Health | DX: F11.21 Opioid dependence, in remission (principal); F12.90 Cannabis use, unspecified, uncomplicated; F17.210 Nicotine dependence, cigarettes, uncomplicated; Z71.6 Tobacco abuse counseling; Z71.51 Drug abuse counseling and surveillance of drug abuser | CPT/HCPCS: 99212 ==